=== PATIENT | male | born 1955 | race American Indian/Alaskan Native ===

== ENCOUNTER 2016-11-21 19:23 | Inpatient (IN) | payer MEDICARE ==
[2016-11-21] MEDS ORDERED: TYLENOL PO PRN (19:48)
[2016-11-21] MEDS ORDERED: SENOKOT PO PRN (19:48)
[2016-11-21] MEDS ORDERED: D50W (25GM) IV PRN (19:48)
[2016-11-21] MEDS ORDERED: DULCOLAX PR PRN (19:48)
[2016-11-21] MEDS ORDERED: NORCO 5/325 PO PRN (19:52)
[2016-11-21] MEDS: ZOCOR PO SCH (21:34)
[2016-11-21] MEDS: NOVOLOG SUB-Q SCH (21:34)
[2016-11-21] MEDS: XALATAN 0.005% OU SCH (22:28)
[2016-11-22 04:41] LABS: Basophils % (Auto) 0.4 % (0.0-1.8); Eosinophils % (Auto) 1.1 % (0.0-4.3); Hematocrit 32.8 % (35.5-45.6); Hemoglobin 11.1 gm/dl (11.8-15.2); Mean Corpuscular HGB Conc 34 % (32-34); Mean Corpuscular Hemoglobin 31 pg (28-32); Mean Corpuscular Volume 91 fl (84-94); Platelet Count 185 K/mm3 (140-440); Red Blood Count 3.61 M/mm3 (3.65-5.03); White Blood Count 4.8 K/mm3 (4.5-11.0)
[2016-11-22 04:58] LABS: Alanine Aminotransferase 13 units/L (7-56); Albumin 2.8 g/dL (3.9-5); Albumin/Globulin Ratio 0.7 %; Alkaline Phosphatase 93 units/L (35-129); BUN/Creatinine Ratio 11.81; Bilirubin,Total 0.4 mg/dL (0.1-1.2); Blood Urea Nitrogen 13 mg/dL (9-20); Calcium 8.6 mg/dL (8.4-10.2); Carbon Dioxide 26 mmol/L (22-30); Chloride 102.6 mmol/L (98-107); Glucose 176 mg/dL (75-100); Potassium 3.6 mmol/L (3.6-5.0); Sodium 140 mmol/L (137-145); Total Protein 6.9 g/dL (6.3-8.2)
[2016-11-22 05:16] LABS: Anion Gap 15 mmol/L
[2016-11-22] MEDS: HALFPRIN EC PO SCH (08:53)
[2016-11-22] MEDS: LOVENOX SUB-Q SCH (08:53)
[2016-11-22] MEDS: PLAVIX PO SCH (09:04)
[2016-11-22] MEDS: NOVOLOG SUB-Q SCH ×4 (09:05→22:09)
--- NOTE | 2016-11-22 14:46 | History and Physical Report ---
History of Present Illness Date: 11/22/16 Referring Facility: [facility] Date of admission: 11/21/16 19:23 Chief Complaint: CVA History of present illness: POST ADMISSION PHYSICIAN EVALUATION ONSET DATE: 11/16/2016 IMPAIRMENT GROUP CODE: 01.2 ETIOLOGIC DIAGNOSIS: left MCA CVA STATUS CHANGES SINCE PREADMISSION SCREENING: PAS has been reviewed. In comparison, pt is with increased strength at Right lower extremity; remains flaccid at RUE. Pt is able to participate in therapies on today without difficulty. Pt continues with functional deficits secondary to acute CVA; pt remains an appropriate candidate for IPR course. PREVIOUS FUNCTIONAL STATUS: Independent with ADLs, transfers; ambulated with RW , Kathrine due to right foot ulcer CURRENT FUNCTIONAL STATUS: modA for transfers; s/u to maxA for ADLs HPI 61 y.o. right handed male admitted secondary to acute onset of dysarthria and right sided weakness after awakening from a nap at home. Patient was brought into ED for evalaution to r/o CVA; found to have acute ischemic changes noted at the left basal ganglia; left MCA CVA distribution. Acute care course also notable for wound care nurse F/U as pt has been followed in outpt wound care for chronic diabetic right foot ulcer. Pt continued with right sided weakness, arm>leg and dysarthria; also with dysphagia on pureed diet with thin liquids. Due to ongoing functional deficits following acute CVA, pt is now admitted to IRU for aggressive therapies and ongoing medical management. Past History Past Medical History: diabetes (with peripheral neuropathy and chronic right foot infection; followed in outpt wound care clinic over last year), hepatitis, hypertension, hyperlipidemia, stroke (2014 without any residual effects) Past Surgical History: Other (cataracts; right toe amputations) Social history: , lives with family. denies: smoking, alcohol abuse Family history: diabetes, hypertension, stroke Medications and Allergies Allergies Allergy/AdvReac Type Severity Reaction Status Date / Time No Known Allergies Allergy Verified 04/03/16 10:35 Home Medications Medication Instructions Recorded Confirmed Last Taken Type Simvastatin [Zocor TAB] 40 mg PO QHS #30 tablet 01/30/16 11/22/16 11/21/16 21: 45 Rx 40mg Ledipasvir/Sofosbuvir [Harvoni 1 each PO QDAY 04/10/16 11/22/16 11/15/16 History 90-400 mg Tablet] HYDROcodone/APAP 5-325 [[place] 1 each PO Q6H PRN #20 tablet 04/17/16 11/22/16 Rx 5-325 mg TAB] Latanoprost 0.005% [Xalatan 0.005%] 1 drop OU QPM 11/16/16 11/22/16 11/21/16 23: 00 History 1 drop Aspirin EC [Aspirin Enteric Coated 81 mg PO QDAY #30 tablet. 11/21/16 Unknown Rx TAB] Clopidogrel [Plavix] 75 mg PO DAILY tablet 11/21/16 11/22/16 Unknown Rx Insulin Detemir [Levemir] 5 units SUB-Q QHS units 11/21/16 11/22/16 Unknown Rx Active Meds: Active Medications Acetaminophen (Tylenol) 650 mg PO Q4H PRN PRN Reason: Pain MILD(1-3)/Fever >100.5/[place] Acetaminophen/Hydrocodone Bitart (Lev[place] 5/325) 1 each PO Q6H PRN PRN Reason: Pain, Moderate (4-6) Aspirin (Halfprin Ec) 81 mg PO QDAY [facility] Last Admin: 11/22/16 08:53 Dose: 81 mg Bisacodyl (Dulcolax) 10 mg [place] QDAY PRN PRN Reason: Constipation unrelieved by MOM Clopidogrel Bisulfate (Plavix) 75 mg PO DAILY [facility] Last Admin: 11/22/16 09:04 Dose: 75 mg Dextrose (D50w (25gm)) 50 ml IV PRN PRN PRN Reason: Hypoglycemia Enoxaparin Sodium (Lovenox) 40 mg SUB-Q QDAY [facility] Last Admin: 11/22/16 08:53 Dose: 40 mg Insulin Aspart (Novolog) 0 units SUB-Q ACHS [facility] PRN Reason: Protocol Last Admin: 11/22/16 12:19 Dose: 2 units Latanoprost (Xalatan 0.005%) 1 drops OU QHS [facility] Last Admin: 11/21/16 22:28 Dose: 1 drops Senna (Senokot) 8.6 mg PO Q12H PRN PRN Reason: Laxative Effect Simvastatin (Zocor) 40 mg PO QHS [facility] Last Admin: 11/21/16 21:34 Dose: 40 mg Review of Systems All systems: negative Ears, nose, mouth and throat: no headache Cardiovascular: no chest pain, no lightheadedness Respiratory: no cough Gastrointestinal: indigestion, no nausea, no vomiting Genitourinary Male: no dysuria Neurological: weakness (right extremities) Exam - Constitutional Vitals: Vital Signs - 12hr 11/22/16 07:30 Temperature 98.5 F Pulse Rate [ 72 Left Brachial] Respiratory 20 Rate Blood Pressure 154/81 [Left Arm] O2 Sat by Pulse 100 Oximetry General appearance: no acute distress, other ( present) - EENT Eyes: EOM intact ENT: hearing intact - Neck Neck: supple, normal ROM - Respiratory Respiratory effort: normal Respiratory: bilateral: CTA - Cardiovascular Rhythm: regular Heart Sounds: Present: S1 & S2 - Extremities Extremity abnormal: edema (right foot) - Gastrointestinal General gastrointestinal: Present: soft, non-tender, non-distended, normal bowel sounds - Musculoskeletal Musculoskeletal: right sided weakness (right UE- flaccid; RLE- 3/5, except 2/5 ankle DF/PF) - Neurologic Neurologic: other (facial droop; +dysarthria; sensation grossly intact; cannot assess right foot due to dressing) - Psychiatric Psychiatric: appropriate mood/affect, memory intact, cooperative - Allied health notes FIMS assesment as documented by PT/OT/ST: Social interaction/Memory/Problem solving Social Interaction FIM Score 7. Complete [place] Memory FIM Score 6. Modified [place] Problem Solving FIM Score 6. Modified [place] Eating Eating FIM Score 5. Supervision - Labs CBC & Chem 7: 11/22/16 04:14 11/22/16 04:14 Labs: Laboratory Results - last 72 hr 11/22/16 11/22/16 11/22/16 04:14 04:14 06:38 WBC 4.8 RBC 3.61 L Hgb 11.1 L Hct 32.8 L MCV 91 MCH 31 MCHC 34 RDW 13.0 L Plt Count 185 Lymph % (Auto) 37.8 H [place] % (Auto) 8.3 H Eos % (Auto) 1.1 Baso % (Auto) 0.4 Lymph # 1.8 [place] # 0.4 Eos # 0.1 Baso # 0.0 Seg Neutrophils % 52.4 Seg Neutrophils # 2.5 Sodium 140 Potassium 3.6 Chloride 102.6 Carbon Dioxide 26 D Anion Gap 15 BUN 13 Creatinine 1.1 Estimated GFR > 60 BUN/Creatinine Ratio 11.81 Glucose 176 H POC Glucose 157 H Calcium 8.6 Total Bilirubin 0.4 AST 15 ALT 13 Alkaline Phosphatase 93 Total Protein 6.9 Albumin 2.8 L Albumin/Globulin Ratio 0.7 11/22/16 11:52 WBC RBC Hgb Hct MCV MCH MCHC RDW Plt Count Lymph % (Auto) [place] % (Auto) Eos % (Auto) Baso % (Auto) Lymph # [place] # Eos # Baso # Seg Neutrophils % Seg Neutrophils # Sodium Potassium Chloride Carbon Dioxide Anion Gap BUN Creatinine Estimated GFR BUN/Creatinine Ratio Glucose POC Glucose 203 H Calcium Total Bilirubin AST ALT Alkaline Phosphatase Total Protein Albumin Albumin/Globulin Ratio Assessment and Plan Assessment and plan: 61 y.o. right handed male s/p left MCA CVA with ongoing right hemiparesis, dysarthria, and dysphagia. The patient is medically stable, however, requires ongoing medical management for DM, HTN, wound care to right foot for chronic diabetic foot ulcer. Pt is appropriate for inpatient rehabilitation admission and is thought to be able to tolerate at least 3 hours of therapy a day, 5 days a week including 1 hour of physical therapy, 1 hour of occupational therapy, and 1 hour of speech therapy. Patient is able to understand and follow basic directions and has attainable rehab goals. Potential barriers/complications include extension/recurrent CVA, falls, DVT, PE, infection/sepsis, hypotension, hypoglycemia, syncope, seizures, depression, skin breakdown. Plan 1. Rehabilitation- Pt will undergo multidisciplinary/integrative rehab PT/OT/ BEVERAGE MANAGER, Nursing. Areas to be addressed include, but are not limited to PT for mobility, strengthening, transfer training, ROM, endurance, stairs, balance; OT for ADLs, household tasks, adaptive equipment; BEVERAGE MANAGER for dysphagia and dysarthria ; Nursing for carryover of therapies, CVA education, skin integrity, medication management, bowel/bladder management; Nutrition as needed; administrative services manager for discharge planning and equipment needs. Potential interventions include appropriate assistive device or adaptive equipment. Expected overall level of functional improvement by discharge is Kathrine to CGA for ADLs; supervision to CGA for transfers and gait. Pt will tentatively be discharged home with outpatient PT/OT/BEVERAGE MANAGER. Estimated length of stay is 2-3 weeks. 2. s/p CVA- continue ASA, Plavix, statin; PT/OT/BEVERAGE MANAGER to address functional deficits with gait, self cares, balance, dysarthria and dysphagia; advance diet when appropriate 3. HTN- BP elevated on today; will start Norvasc in AM 4. DM- will resume levemir; follow, avoid hypoglycemia with increased activity 5. right diabetic foot ulcer- wound care following; remains afebrile; to continue with Mesalt at wound beds (right lateral and planter surfaces) 6. DVT px- lovenox - Patient Problems (1) Acute ischemic left middle cerebral artery (MCA) stroke Current Visit: Yes Status: Acute (2) Dysarthria as late effect of cerebrovascular accident (CVA) Current Visit: No Status: Acute (3) Dysphagia as late effect of cerebrovascular accident (CVA) Current Visit: No Status: Acute (4) Hemiparesis affecting right side as late effect of cerebrovascular accident Current Visit: No Status: Acute (5) HTN (hypertension) Current Visit: Yes Status: Chronic Qualifiers: Hypertension type: essential hypertension Qualified Code(s): I10 - Essential (primary) hypertension (6) Type 2 diabetes mellitus Current Visit: Yes Status: Chronic Qualifiers: Diabetes mellitus complication status: with neurologic complications Diabetes mellitus complication detail: with polyneuropathy Diabetes mellitus senior living insulin use: with senior living use Qualified Code(s): E11.42 - Type 2 diabetes mellitus with diabetic polyneuropathy; Z79.4 - longterm (current) use of insulin (7) Diabetic foot ulcer Current Visit: Yes Status: Chronic Qualifiers: Diabetes mellitus type: type 2 Laterality: right Qualified Code(s): E11.621 - Type 2 diabetes mellitus with foot ulcer
[2016-11-22] MEDS ORDERED: ALUM-MAG HYDROX-SIMETH 200-200-20MG/5ML PO PRN (15:56)
[2016-11-22] MEDS: XALATAN 0.005% OU SCH (22:00)
[2016-11-22] MEDS: ZOCOR PO SCH (22:06)
[2016-11-22] MEDS: LEVEMIR SUB-Q SCH (22:10)
[2016-11-23] MEDS: NOVOLOG SUB-Q SCH ×4 (07:30→22:28)
[2016-11-23] MEDS: PLAVIX PO SCH (09:12)
[2016-11-23] MEDS: HALFPRIN EC PO SCH (09:12)
[2016-11-23] MEDS: ZESTRIL PO SCH (09:12)
[2016-11-23] MEDS: LOVENOX SUB-Q SCH (09:13)
--- NOTE | 2016-11-23 11:24 | Progress Note ---
Assessment and Plan 61 y.o. right handed male s/p left MCA CVA with ongoing right hemiparesis, dysarthria, and dysphagia - s/p CVA- ongoing right hemiparesis, arm>leg; continue ASA, Plavix, statin - gait dysfunction secondary to CVA- aggressive PT; pt ambulating with HW - dysarthria/dysphagia- continue FREIGHT SORTER; advance diet when appropriate, currently on pureed with thin liquids - HTN- lisinopril, home med, restarted on yesterday - DM- levemir restarted on last night; follow, avoid hypoglycemia with increased activity - right diabetic foot ulcer- continue wound care, Mesalt at wound beds (right lateral and planter surfaces) - DVT px- lovenox - fall education provided to patient; no injury noted; will follow closely for any change in status - Patient Problems (1) Acute ischemic left middle cerebral artery (MCA) stroke Current Visit: Yes Status: Acute (2) Dysarthria as late effect of cerebrovascular accident (CVA) Current Visit: No Status: Acute (3) Dysphagia as late effect of cerebrovascular accident (CVA) Current Visit: No Status: Acute (4) Hemiparesis affecting right side as late effect of cerebrovascular accident Current Visit: No Status: Acute (5) HTN (hypertension) Current Visit: Yes Status: Chronic Qualifiers: Hypertension type: essential hypertension Qualified Code(s): I10 - Essential (primary) hypertension (6) Type 2 diabetes mellitus Current Visit: Yes Status: Chronic Qualifiers: Diabetes mellitus complication status: with neurologic complications Diabetes mellitus complication detail: with polyneuropathy Diabetes mellitus senior care insulin use: with dedicated intermodal truck driver use Qualified Code(s): E11.42 - Type 2 diabetes mellitus with diabetic polyneuropathy; Z79.4 - watermelon inspector (current) use of insulin (7) Diabetic foot ulcer Current Visit: Yes Status: Chronic Qualifiers: Diabetes mellitus type: type 2 Laterality: right Qualified Code(s): E11.621 - Type 2 diabetes mellitus with foot ulcer (8) Abnormality of gait following cerebrovascular accident (CVA) Current Visit: No Status: Acute Subjective Date of service: 11/23/16 Principal diagnosis: left MCA CVA Interval history: Pt seen in room on this AM, F/U IPR course, left MCA CVA. Pt found on floor in room; reports attempting to reach across and get his cell phone from the bed and lost his balance out of the wheelchair. Pt denies any pain or injury; did not hit his head. Objective - Constitutional Vitals: Vital Signs - 12hr 11/23/16 11/23/16 08:11 09:12 Temperature 98.3 F Pulse Rate 82 Pulse Rate [ 82 Left Brachial] Respiratory 20 Rate Blood Pressure 164/76 Blood Pressure 164/76 [Left Arm] O2 Sat by Pulse 98 Oximetry General appearance: Present: no acute distress - EENT Eyes: EOM intact ENT: hearing intact - Neck Neck: supple, normal ROM - Respiratory Respiratory effort: normal Respiratory: bilateral: CTA - Cardiovascular Rhythm: regular Heart Sounds: Present: S1 & S2 Extremity abnormal: other (dressing to right foot) - Gastrointestinal General gastrointestinal: Present: soft, non-tender, non-distended, normal bowel sounds - Musculoskeletal Musculoskeletal: right sided weakness, other (no tenderness at noted across any joints with deep palpation following fall; no change in ROM on left extremities ; no pain with PROM on right) - Neurologic Neurologic: other (ongoing facial droop and dysarthria) - Psychiatric Psychiatric: appropriate mood/affect, cooperative - Allied health notes Allied health notes reviewed: PT (min/CGA for transfers; CGA-modA for gait 30 feet with HW), OT (S/U to maxA for ADLs) - Labs CBC & Chem 7: 11/22/16 04:14 11/22/16 04:14 Labs: Abnormal lab results 11/22/16 11/22/16 11/22/16 Range/Units 11:52 16:17 21:34 POC Glucose 203 H 244 H 153 H (70-105) 11/23/16 Range/Units 05:48 POC Glucose 143 H (70-105)
--- NOTE | 2016-11-23 12:50 | IRU Plan of Care ---
Interdisciplinary Plan of Care - IP IRU INTERDISCIPLINARY PLAN: [facility] Inpatient Rehab Unit Plan of Care IRU Interdisciplinary Care Plan Start: 11/21/16 19: 55 Freq: Admission then PRN Status: Active Document 11/23/16 11:08 DB (Rec: 11/23/16 11:42 DB [id number]) Interdisciplinary Problem List Interdisciplinary Problem List Interdisciplinary Problem List Impaired Eating/Swallowing Query Text:Answers will Trigger Problems Impaired Bathing/Grooming and Outcomes on Worklist. Impaired Dressing Impaired Mobility Impaired Transfers Impaired Toileting Knowledge Deficits Impaired Skin/Tissue Integrity Impaired Home Management Impaired Safety Medications Education Diabetes Education IRU Interdisciplinary Care Plan Therapy Services Therapy Services Will Include: Physical Therapy Query Text:Patient will be seen for a Occupational Therapy minimum of 3 hours of daily therapy 5 Speech Therapy out of 7 days a week. Therapy intensity may be adjusted within a 7 consecutive day period to effectively serve the individual needs of the patient. Treatment Frequency/Intensity/Duration Treatment Frequency 5 days a week Treatment Intensity 1 hour per discipline daily Treatment Duration 14-21 days Problem Area: Eating/Swallowing Eating/Swallowing Outcomes Consume Least Restrictive Diet Improve Labial ROM/Strength Improve Lingual ROM/Strength Eating/Swallowing Interventions Dysphagia Training Compensatory Strategies Patient/Caregiver Education Problem Area: Bathing/Grooming Bathing/Grooming Outcomes Improve [place] w/ Grooming Improve [place] w/ Bathing Bathing/Grooming Interventions ADL Training Use of Assistive Devices Therapeutic Exercise Therapeutic Activity Neuromuscular Re-Education Balance Work Activity Tolerance Work Patient/Caregiver Education Problem Area: Dressing Dressing Outcomes Improve [place] w/ UB Dressing Improve [place] w/ LB Dressing Dressing Interventions ADL Training Use of Assistive Devices Neuromuscular Re-Education Therapeutic Exercise Balance Work Patient/Caregiver Education Problem Area: Mobility Mobility Outcomes Improve [place] w/ Bed Mobility Improve [place] w/ Ambulation Improve [place] w/ Stairs /Curb Improve [place] w/ Wheelchair Mobility Interventions Therapeutic Exercise Neuromuscular Re-Ed. Visual/Perceptual Training Activity Tolerance Work Use of Assistive Devices Patient/Caregiver Education Bed Mobility Work Gait Training W/C Mobility Work Problem Area: Transfers Transfers Outcomes Improve [place] w/ Bed Transfers Improve [place] w/ Toilet Transfers Improve [place] w/ Tub/ Shower Transfers Improve [place] w/ Car Transfers Transfers Interventions Transfer Training Therapeutic Exercise Neuromuscular Re-Education Visual/Perceptual Training Activity Tolerance Work Use of Assistive Devices Patient/Caregiver Education Problem Area: Bowel/Bladder Managment Bowel/Bladder Outcomes Bowel/Bladder Interventions Problem Area: Toileting Toileting Outcomes Improve [place] w/ Toileting Toileting Interventions ADL Training Balance Work Use of Assistive Devices Patient/Caregiver Education Problem Area: Nutrition Nutrition Outcomes Nutrition Interventions Problem Area: Comprehension Comprehension Outcomes Improve Comprehension Follow Commands Improve Communication Comprehension Interventions Patient/Caregiver Education Problem Area: Expression Expression Outcomes Improve Intelligibility Improve Vocal Quality Improve Verbalization Expression Interventions Expressive Language Writing Tasks Patient/Caregiver Education Problem Area: Problem Solving Problem Solving Outcomes Improve Problem Solving Problem Solving Interventions Cognitive Training Safety Education Patient/Caregiver Education Problem Area: Memory Memory Outcomes Use Memory Aids Memory Interventions Cognitive Training Review of Precautions Patient/Caregiver Education Problem Area: Pain Management Pain Management Outcomes Demonstrate/Verbalize Pain Strategies Pain Management Interventions Medication Management Positioning/Turning Patient/Caregiver Education Problem Area: Knowledge Deficits Knowledge Deficits Outcomes Demonstrate Ability to Manage Blood Glucose Demonstrate Understanding of Anticoagulation Verbalize Precautions Verbalize Understanding of S/S of Stroke Knowledge Deficits Interventions Disease/Injury/Sx. Intervention Education Medication Use Education Disease Management Education Health Maintainence Education Safety Education Problem Area: Skin/Tissue Integrity Skin/Tissue Integrity Outcomes Exhibit Healing of Wound/ Incision Demonstrate Understanding of Pressure Relief Skin/Tissue Integrity Interventions Skin/Wound Care Pressure Relief Instruction Dressing Change Education Positioning/Turning Problem Area: Social Interaction Social Interaction Outcomes Social Interaction Interventions Problem Area: Adjustment to Disability Adjustment to Disability Outcomes Adjustment to Disability Interventions Problem Area: Discharge Concerns Discharge Concerns Outcomes Discharge w/ Necessary Equipment Have Home Health/Outpatient Services Discharge Concerns Interventions Discharge Planning Family/Caregiver Conference Family/Caregiver Training Problem Area: Community Reintegration Community Reintegration Outcomes Demonstrate Understanding of Community Resources Community Reintegration Interventions Provide Community Resources Problem Area: Home Management Home Management Outcomes Improve [place] w/ Home Management Home Management Interventions Activity Tolerance Work Patient/Caregiver Education Problem Area: Safety Safety Outcomes Provide Safe Environment Perform Selfcare Safely Demonstrate Good Safety w/ Transfers/Mobility Safety Interventions Identify Fall Risk [place] Pt. to Environment Reduce Environmental Hazards Implement Mechanical Devices, i.e. Chair Alarm (Post Fall Update) Re-Educate Patient/Caregiver for Safety (Post Fall Update) Problem Area: Medication Education Medication Education Outcomes Patient/Caregiver will Verbalize Understanding of Medications Medication Education Interventions Explain Administration/Side Effects/Interactions Problem Area: Diabetes Education Diabetes Education Outcomes Demonstrate Knowledge of Resources Availlable in Diabetic Ed. Folder Diabetes Education Interventions Give Pt. Diabetes Education Folder Discuss Pathophysiology of Diabetes Review Instruction on Making Appointment for Outpatient Program Problem Area: Oxygenation Oxygenation Outcomes Oxygenation Interventions Problem Area: Cardiovascular Cardiovascular Outcomes Cardiovascular Interventions Physician Only Medical Prognosis and Rehabilitation Patient demonstrates good Potential (Completed by Physician) rehab potential. Medical Prognosis: Good This plan of care has been developed based on the findings from the pre- admission assessment, post admission physician evaluation, information gathered from the assessments from all therapy disciplines and other pertinent clinicians. The plan of care has been reviewed and discussed in collaboration with the interdisciplinary team. The plan of care will be reviewed and updated at least weekly. 61 y.o. right handed male s/p left MCA CVA with ongoing right hemiparesis, dysarthria, and dysphagia. The patient remains at risk for extension/recurrent CVA, falls, DVT, PE, infection/sepsis, hypotension, hypoglycemia, syncope, seizures, depression, skin breakdown. Pt with fall this AM without any injury; safety education provided to patient. Home meds restarted for HTN and DM; will continue to monitor. Pt remains on pureed diet with thin liquids; will advance when appropriate during course. Wound care to continue to follow for chronic right diabetic foot ulcer. Pt continues with functional deficits and is tolerating therapies well. Pt remains an appropriate candidate for IPR course.
[2016-11-23] MEDS: ZOCOR PO SCH (22:00)
[2016-11-23] MEDS: LEVEMIR SUB-Q SCH (22:00)
[2016-11-23] MEDS: XALATAN 0.005% OU SCH (22:20)
[2016-11-24] MEDS: NOVOLOG SUB-Q SCH ×4 (07:30→22:50)
[2016-11-24] MEDS: LOVENOX SUB-Q SCH (09:45)
[2016-11-24] MEDS: ZESTRIL PO SCH (09:46)
[2016-11-24] MEDS: PLAVIX PO SCH (09:47)
[2016-11-24] MEDS: HALFPRIN EC PO SCH (09:47)
--- NOTE | 2016-11-24 12:49 | Progress Note ---
Assessment and Plan 61 y.o. right handed male s/p left MCA CVA with ongoing right hemiparesis, dysarthria, and dysphagia - s/p CVA- ongoing right hemiparesis, arm>leg; continue ASA, Plavix, statin - gait dysfunction secondary to CVA- Ari/moda for transfers and gait; pt is tolerating well - dysarthria/dysphagia- continue BED LASTER; diet advanced to mechanical soft on today - HTN- stable; continue to follow - DM- good control; continue to follow - right diabetic foot ulcer- ongoing wound care - DVT px- lovenox - Patient Problems (1) Acute ischemic left middle cerebral artery (MCA) stroke Current Visit: Yes Status: Acute (2) Dysarthria as late effect of cerebrovascular accident (CVA) Current Visit: No Status: Acute (3) Dysphagia as late effect of cerebrovascular accident (CVA) Current Visit: No Status: Acute (4) Hemiparesis affecting right side as late effect of cerebrovascular accident Current Visit: No Status: Acute (5) HTN (hypertension) Current Visit: Yes Status: Chronic Qualifiers: Hypertension type: essential hypertension Qualified Code(s): I10 - Essential (primary) hypertension (6) Type 2 diabetes mellitus Current Visit: Yes Status: Chronic Qualifiers: Diabetes mellitus complication status: with neurologic complications Diabetes mellitus complication detail: with polyneuropathy Diabetes mellitus senior living insulin use: with equipment driver use Qualified Code(s): E11.42 - Type 2 diabetes mellitus with diabetic polyneuropathy; Z79.4 - penitentiary (current) use of insulin (7) Diabetic foot ulcer Current Visit: Yes Status: Chronic Qualifiers: Diabetes mellitus type: type 2 Laterality: right Qualified Code(s): E11.621 - Type 2 diabetes mellitus with foot ulcer (8) Abnormality of gait following cerebrovascular accident (CVA) Current Visit: No Status: Acute Subjective Date of service: 11/24/16 Principal diagnosis: left MCA CVA Interval history: Pt seen in BED LASTER this AM, F/U IPR course, left MCA CVA. No pain s/p fall on yesterday; noted to have an episode of vomiting on yesterday evening; no further episodes; denies any nausea on today Objective - Constitutional Vitals: Vital Signs - 12hr 11/24/16 11/24/16 08:03 09:46 Temperature 98.3 F Pulse Rate 69 Pulse Rate [ 69 Left Brachial] Respiratory 18 Rate Blood Pressure 152/76 Blood Pressure 152/76 [Left Arm] O2 Sat by Pulse 100 Oximetry General appearance: Present: no acute distress, well-nourished - EENT Eyes: EOM intact ENT: hearing intact - Neck Neck: supple, normal ROM - Respiratory Respiratory effort: normal - Gastrointestinal General gastrointestinal: Present: soft, non-tender, non-distended - Musculoskeletal Musculoskeletal: right sided weakness - Neurologic Neurologic: other (unchanged facial droop an dysarthria) - Psychiatric Psychiatric: appropriate mood/affect, cooperative - Allied health notes Allied health notes reviewed: PT (Ari for transfers; modA for gait), ST ( upgraded to mechanical soft diet from pureed) - Labs CBC & Chem 7: 11/22/16 04:14 11/22/16 04:14 Labs: Abnormal lab results 11/23/16 11/23/16 11/24/16 Range/Units 16:39 21:23 06:14 POC Glucose 116 H 137 H 111 H (70-105) 11/24/16 Range/Units 11:56 POC Glucose 142 H (70-105)
[2016-11-24] MEDS: ZOFRAN PO PRN (14:10)
[2016-11-24] MEDS: ZOCOR PO SCH (22:34)
[2016-11-24] MEDS: LEVEMIR SUB-Q SCH (23:11)
[2016-11-24] MEDS: XALATAN 0.005% OU SCH (23:27)
[2016-11-25] MEDS: ZESTRIL PO SCH (08:00)
[2016-11-25] MEDS: HALFPRIN EC PO SCH (08:54)
[2016-11-25] MEDS: LOVENOX SUB-Q SCH (08:54)
[2016-11-25] MEDS: ZOFRAN PO PRN ×2 (08:55→17:08)
[2016-11-25] MEDS: PLAVIX PO SCH ×2 (08:58→10:00)
[2016-11-25] MEDS: NOVOLOG SUB-Q SCH ×3 (13:16→22:38)
[2016-11-25] MEDS: ZOCOR PO SCH (21:58)
[2016-11-25] MEDS: LEVEMIR SUB-Q SCH (22:41)
[2016-11-25] MEDS: XALATAN 0.005% OU SCH (23:07)
[2016-11-26] MEDS: PLAVIX PO SCH (09:49)
[2016-11-26] MEDS: LOVENOX SUB-Q SCH (09:49)
[2016-11-26] MEDS: HALFPRIN EC PO SCH (09:49)
[2016-11-26] MEDS: ZESTRIL PO SCH (09:53)
--- NOTE | 2016-11-26 11:22 | Progress Note ---
Assessment and Plan 61 y.o. right handed male s/p left MCA CVA with ongoing right hemiparesis, dysarthria, and dysphagia c/o Vomiting with food. 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 has had vomiting even prior to advancing diet. any GI issue?, will request GI consult. d/w speech. will consider going back to Puree diet. - HTN- stable; continue to follow - DM- good control; continue to follow - right diabetic foot ulcer- ongoing wound care - Urinary incontinence - will do bladder scan. do UA today. - DVT px- lovenox - Patient Problems (1) Acute ischemic left middle cerebral artery (MCA) stroke Current Visit: Yes Status: Acute (2) Diabetic foot ulcer Current Visit: Yes Status: Chronic Qualifiers: Diabetes mellitus type: type 2 Laterality: right Qualified Code(s): E11.621 - Type 2 diabetes mellitus with foot ulcer (3) HTN (hypertension) Current Visit: Yes Status: Chronic Qualifiers: Hypertension type: essential hypertension Qualified Code(s): I10 - Essential (primary) hypertension (4) Type 2 diabetes mellitus Current Visit: Yes Status: Chronic Qualifiers: Diabetes mellitus complication status: with neurologic complications Diabetes mellitus complication detail: with polyneuropathy Diabetes mellitus long-term insulin use: with long-term use Qualified Code(s): E11.42 - Type 2 diabetes mellitus with diabetic polyneuropathy; Z79.4 - medical terminologist (current) use of insulin (5) ARF (acute renal failure) Current Visit: No Status: Acute (6) Abnormality of gait following cerebrovascular accident (CVA) Current Visit: No Status: Acute (7) CVA (cerebral vascular accident) Current Visit: No Status: Acute Qualifiers: CVA mechanism: unspecified Qualified Code(s): I63.9 - Cerebral infarction, unspecified Subjective Date of service: 11/26/16 Principal diagnosis: left MCA CVA Interval history: patient seen and examined during PT session. c/o N/V with mechanical soft diet. On Thin liquid. has right sided weakness. c/o bladder incontinence. PT/OT/ Speech notes reviewed. d/w Speech therapist about Vomiting with food. will consider going back to Puree diet. Objective - Constitutional Vitals: Vital Signs - 12hr 11/26/16 11/26/16 03:40 09:53 Temperature 98.3 F Pulse Rate 94 H Pulse Rate [ 74 From Monitor] Respiratory 20 Rate Blood Pressure 113/59 Blood Pressure 116/54 [Left Arm] O2 Sat by Pulse 96 Oximetry - EENT Eyes: PERRL ENT: hearing intact - Neck Neck: supple - Respiratory Respiratory effort: normal Respiratory: bilateral: CTA - Cardiovascular Rhythm: regular Heart Sounds: Present: S1 & S2 Extremities: no ischemia, pulses symmetrical, No edema - Gastrointestinal Rectal Exam: deferred - Genitourinary Male genitourinary: deferred - Integumentary Integumentary: clear, warm, dry - Musculoskeletal Musculoskeletal: right sided weakness - Neurologic Neurologic: other (right facial palsy, dysarthria) - Psychiatric Psychiatric: appropriate mood/affect, intact judgment & insight - Allied health notes Allied health notes reviewed: nursing, PT, ST, OT - Labs CBC & Chem 7: 11/22/16 04:14 11/22/16 04:14 Labs: Abnormal lab results 11/25/16 11/25/16 Range/Units 11:45 16:54 POC Glucose 176 H 178 H (70-105)
[2016-11-26] MEDS: NOVOLOG SUB-Q SCH ×4 (12:53→22:27)
[2016-11-26] MEDS: ZOCOR PO SCH (22:00)
[2016-11-26] MEDS: XALATAN 0.005% OU SCH (22:00)
[2016-11-26] MEDS: LEVEMIR SUB-Q SCH (22:00)
[2016-11-27 04:55] LABS: Bacteria,Urine 2+ /HPF (Negative); Bilirubin,Urine NEG (Negative); Blood,Urine LG (Negative); Ketones,Urine NEG (Negative); Leukocyte Esterase,Urine LG (Negative); Mucus,Urine FEW /HPF; Nitrite,Urine POS (Negative)
[2016-11-27 04:56] LABS: RBC,Urine > 182.0 /HPF (0.0-6.0); WBC,Urine > 182.0 /HPF (0.0-6.0)
--- NOTE | 2016-11-27 09:46 | Progress Note ---
Assessment and Plan 61 y.o. right handed male s/p left MCA CVA with ongoing right hemiparesis, dysarthria, and dysphagia c/o Vomiting with food-better. s - s/p CVA- ongoing right hemiparesis, arm>leg; continue ASA, Plavix, statin - gait dysfunction secondary to CVA- Ari/moda for transfers and gait; pt is tolerating well - dysarthria/dysphagia- continue FULL TIME; OK with mechanical soft diet with thin liquid. still c/o N/V with food. reports that he has had N/V with food even prior to stroke. requested GI consult. - HTN- stable; continue to follow - DM- good control; continue to follow - right diabetic foot ulcer- ongoing wound care - Urinary incontinence -UA is positive. start Levaquin. check urine C/S. - DVT px- lovenox - Patient Problems (1) Acute ischemic left middle cerebral artery (MCA) stroke Current Visit: Yes Status: Acute (2) Diabetic foot ulcer Current Visit: Yes Status: Chronic Qualifiers: Diabetes mellitus type: type 2 Laterality: right Qualified Code(s): E11.621 - Type 2 diabetes mellitus with foot ulcer (3) HTN (hypertension) Current Visit: Yes Status: Chronic Qualifiers: Hypertension type: essential hypertension Qualified Code(s): I10 - Essential (primary) hypertension (4) Type 2 diabetes mellitus Current Visit: Yes Status: Chronic Qualifiers: Diabetes mellitus complication status: with neurologic complications Diabetes mellitus complication detail: with polyneuropathy Diabetes mellitus terminal operations supervisor insulin use: with terminal operations supervisor use Qualified Code(s): E11.42 - Type 2 diabetes mellitus with diabetic polyneuropathy; Z79.4 - terminal gauger (current) use of insulin (5) ARF (acute renal failure) Current Visit: No Status: Acute (6) Abnormality of gait following cerebrovascular accident (CVA) Current Visit: No Status: Acute (7) CVA (cerebral vascular accident) Current Visit: No Status: Acute Qualifiers: CVA mechanism: unspecified Qualified Code(s): I63.9 - Cerebral infarction, unspecified Subjective Date of service: 11/27/16 Principal diagnosis: left MCA CVA Interval history: patient seen and examined during PT session. feel better with food today. observed eating with Speech. no episode of choking/coughing with mechanical soft diet. GI consult requested. states that he had N/V with food even prior to stroke. Objective - Constitutional Vitals: Vital Signs - 12hr 11/26/16 22:00 Pulse Rate [ 84 Right Radial] Respiratory 16 Rate General appearance: Present: no acute distress - EENT Eyes: PERRL ENT: hearing intact - Neck Neck: supple - Respiratory Respiratory effort: normal Respiratory: bilateral: CTA - Cardiovascular Rhythm: regular Heart Sounds: Present: S1 & S2 Extremities: no ischemia, pulses intact - Gastrointestinal General gastrointestinal: Present: soft, non-tender, normal bowel sounds - Integumentary Integumentary: clear, warm, dry - Musculoskeletal Musculoskeletal: right sided weakness - Neurologic Neurologic: other (right facial palsy,dysarthria, dyaphagia) - Psychiatric Psychiatric: appropriate mood/affect - Allied health notes Allied health notes reviewed: nursing, PT, ST, OT - Labs CBC & Chem 7: 11/22/16 04:14 11/22/16 04:14 Labs: Abnormal lab results 11/26/16 11/26/16 11/26/16 Range/Units 04:30 12:10 17:44 POC Glucose 181 H 229 H (70-105) Urine WBC (Auto) > 182.0 H (0.0-6.0) /HPF 11/26/16 11/27/16 Range/Units 22:18 06:06 POC Glucose 226 H 171 H (70-105) Urine WBC (Auto) (0.0-6.0) /HPF
[2016-11-27] MEDS: NOVOLOG SUB-Q SCH ×4 (09:47→22:00)
[2016-11-27] MEDS: LOVENOX SUB-Q SCH (09:57)
[2016-11-27] MEDS: PLAVIX PO SCH (09:58)
[2016-11-27] MEDS: ZOFRAN PO PRN ×2 (09:58→14:37)
[2016-11-27] MEDS: HALFPRIN EC PO SCH (09:58)
[2016-11-27] MEDS: LEVAQUIN PO SCH (09:59)
[2016-11-27] MEDS: ZESTRIL PO SCH (09:59)
--- NOTE | 2016-11-27 17:47 | Gastroenterology Consultation ---
History of Present Illness - Reason for Consult Consult date: 11/27/16 Nausea/Vomiting Requesting physician: OSMANI VALDERRAMA - History of Present Illness The patient is seen in his rehab room, and the hx is obtained from him and his family present. There is apparently a long hx of mild N/V, but it may (they are not sure) have worsened since an acute MCA CVA for which he is in rehab. He primarily has nausea, and responds to zofran, but has intermittently had vomiting as well (nonbloody). He had a CCY earlier this year (mild cholecystitis with gallstones) but has not had recent EGD, nor had a gastric emptying scan. He is recovering well from the CVA, and his swallowing ability is improving (on a pureed diet). He has no dysphagia nor hematemesis. He has no chest pain or abdominal pain. There has been no associated weight loss. He does not use chronic antiacids at home. He denies a hx of PUD. Of note, his hgb has slowly declined while here (on ASA, plavix, and lovenox). In addition, he has a hx of HCV and was on Harvoni on admission by Dr Hawa Pearl's clinic. Past History Past Medical History: diabetes (with peripheral neuropathy and chronic right foot infection; followed in outpt wound care clinic over last year), hepatitis, hypertension, hyperlipidemia, stroke (2014 without any residual effects) Past Surgical History: Other (cataracts; right toe amputations) Social history: , lives with family. denies: smoking, alcohol abuse Family history: diabetes, hypertension, stroke Medications and Allergies Allergies Allergy/AdvReac Type Severity Reaction Status Date / Time No Known Allergies Allergy Verified 04/03/16 10:35 Home Medications Medication Instructions Recorded Confirmed Last Taken Type Simvastatin [Zocor TAB] 40 mg PO QHS #30 tablet 01/30/16 11/22/16 11/21/16 21: 45 Rx 40mg Ledipasvir/Sofosbuvir [Harvoni 1 each PO QDAY 04/10/16 11/22/16 11/15/16 History 90-400 mg Tablet] HYDROcodone/APAP 5-325 [[place] 1 each PO Q6H PRN #20 tablet 04/17/16 11/22/16 Rx 5-325 mg TAB] Latanoprost 0.005% [Xalatan 0.005%] 1 drop OU QPM 11/16/16 11/22/16 11/21/16 23: 00 History 1 drop Aspirin EC [Aspirin Enteric Coated 81 mg PO QDAY #30 tablet. 11/21/16 Unknown Rx TAB] Clopidogrel [Plavix] 75 mg PO DAILY tablet 11/21/16 11/22/16 Unknown Rx Insulin Detemir [Levemir] 5 units SUB-Q QHS units 11/21/16 11/22/16 Unknown Rx Active Meds: Active Medications Acetaminophen (Tylenol) 650 mg PO Q4H PRN PRN Reason: Pain MILD(1-3)/Fever >100.5/[place] Acetaminophen/Hydrocodone Bitart ([place] 5/325) 1 each PO Q6H PRN PRN Reason: Pain, Moderate (4-6) Al Hydrox/Mg Hydrox/Simethicone (Alum-Mag Hydrox-Simeth [phone]/5ml) 15 ml PO Q4H PRN PRN Reason: Indigestion Aspirin (Halfprin Ec) 81 mg PO QDAY [facility] Bisacodyl (Dulcolax) 10 mg [place] QDAY PRN PRN Reason: Constipation unrelieved by MOM Clopidogrel Bisulfate (Plavix) 75 mg PO DAILY [facility] Dextrose (D50w (25gm)) 50 ml IV PRN PRN PRN Reason: Hypoglycemia Enoxaparin Sodium (Lovenox) 40 mg SUB-Q QDAY [facility] Last Admin: 11/27/16 09:57 Dose: 40 mg Insulin Aspart (Novolog) 0 units SUB-Q [facility] PRN Reason: Protocol Last Admin: 11/27/16 14:36 Dose: Not Given Insulin Detemir (Levemir) 5 units SUB-Q QHS [facility] Last Admin: 11/26/16 22:00 Dose: 5 units Latanoprost (Xalatan 0.005%) 1 drops OU QHS [facility] Last Admin: 11/26/16 22:00 Dose: 1 drops Levofloxacin (Levaquin) 500 mg PO Q24HR [facility] Stop: 12/03/16 23:59 Last Admin: 11/27/16 09:59 Dose: 500 mg Lisinopril (Zestril) 20 mg PO QDAY [facility] Last Admin: 11/27/16 09:59 Dose: Not Given Ondansetron HCl (Zofran) 4 mg PO Q6H PRN PRN Reason: Nausea And Vomiting Last Admin: 11/27/16 14:37 Dose: 4 mg Senna (Senokot) 8.6 mg PO Q12H PRN PRN Reason: Laxative Effect Simvastatin (Zocor) 40 mg PO QHS [facility] Last Admin: 11/26/16 22:00 Dose: 40 mg Review of Systems - Review of Systems All systems: negative (as noted in the HPI) Exam - Constitutional Vital Signs: Temp Pulse Resp BP Pulse Ox 98.3 F 85 20 120/55 98 11/27/16 08:30 11/27/16 10:00 11/27/16 08:30 11/27/16 09:59 11/27/16 10:00 General appearance: no acute distress - EENT Eyes: PERRL, EOM intact ENT: hearing intact, clear oral mucosa, no thrush - Neck Neck: supple, normal ROM - Respiratory Respiratory effort: normal Respiratory: bilateral: CTA - Cardiovascular Rhythm: regular Heart Sounds: Present: S1 & S2 Extremities: no ischemia - Gastrointestinal General gastrointestinal: Present: soft, non-tender - Integumentary Integumentary: Present: clear, warm, dry - Neurologic Neurological: alert and oriented x3, other (Mild dysarthria and hemiparesis) - Labs CBC & Chem 7: 11/22/16 04:14 11/22/16 04:14 Lab Results: Laboratory Results - last 24 hr 11/26/16 11/26/16 11/26/16 04:30 17:44 22:18 POC Glucose 229 H 226 H Urine Color Yadi Urine Turbidity Turbid Urine pH 6.0 Ur Specific [place] 1.018 Urine Protein 100 mg/dl Urine Glucose (UA) 50 Urine Ketones Neg Urine Blood Lg Urine Nitrite Pos Urine Bilirubin Neg Urine Urobilinogen 4.0 Ur Leukocyte Esterase Lg Urine WBC (Auto) > 182.0 H Urine RBC (Auto) > 182.0 Urine Bacteria (Auto) 2+ Hyaline Casts 9 Urine Mucus Few 11/27/16 11/27/16 11/27/16 06:06 12:27 16:13 POC Glucose 171 H 164 H 193 H Urine Color Urine Turbidity Urine pH Ur Specific [place] Urine Protein Urine Glucose (UA) Urine Ketones Urine Blood Urine Nitrite Urine Bilirubin Urine Urobilinogen Ur Leukocyte Esterase Urine WBC (Auto) Urine RBC (Auto) Urine Bacteria (Auto) Hyaline Casts Urine Mucus Assessment and Plan - Patient Problems (1) Nausea & vomiting Current Visit: Yes Status: Acute Plan to address problem: - Months (?years) duration but no signs of malnutrition and variable in intensity. - Prior CCY in 2016, and normal LFTs (doubt recurrent HCV). - No prior upper/lower endoscopy, so will start with EGD, but since it does not occur with every meal, I doubt outlet obstruction. - Given long hx of DM, gastroparesis is possible (will order emptying scan after EGD if that is negative). (2) Hepatitis C infection Current Visit: Yes Status: Acute Plan to address problem: - Interrupted treatment with Harvoni due to recent MCA CVA, but LFTs remain normal. - Will check viral load, and if negative, no need to resume medication. (3) Anemia Current Visit: Yes Status: Acute Plan to address problem: - Patient will require long-term ASA and plavix; if EGD negative, will probably need colonoscopy given fall in hgb (10 points) despite lack of GI bleeding.
[2016-11-27] MEDS: ZOCOR PO SCH (22:00)
[2016-11-27] MEDS: LEVEMIR SUB-Q SCH (22:00)
[2016-11-27] MEDS: XALATAN 0.005% OU SCH (23:26)
[2016-11-28] MEDS: ZESTRIL PO SCH (09:03)
[2016-11-28] MEDS: LEVAQUIN PO SCH (09:03)
[2016-11-28] MEDS: NOVOLOG SUB-Q SCH ×4 (09:05→23:00)
[2016-11-28] MEDS: LOVENOX SUB-Q SCH (09:06)
--- NOTE | 2016-11-28 10:30 | Post Operative Note ---
Pre-op diagnosis: nausea/vomitting Post-op diagnosis: same (normal EGD) Findings: normal EGD Procedure: EGD Anesthesia: MAC Surgeon: OVIDIO MABRY Estimated blood loss: none Pathology: none Condition: stable
--- NOTE | 2016-11-28 11:38 | Progress Note ---
Assessment and Plan 61 y.o. right handed male s/p left MCA CVA with ongoing right hemiparesis, dysarthria, and dysphagia c/o Vomiting with food. GI consult appreciated. Endoscopy done today. - s/p CVA- ongoing right hemiparesis, arm>leg; continue ASA, Plavix, statin - gait dysfunction secondary to CVA- still requires Ari/moda for transfers and gait. 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 still c/o N/V - intermittent - HTN- stable; continue to follow - DM- good control; continue to follow - right diabetic foot ulcer- ongoing wound care - Urinary incontinence -UA is positive. start Levaquin. - DVT px- lovenox -GI - GI consult appreciated. Endoscopy done today, result pending. r/o gastroparesis due to DM? f/u with GI - Patient Problems (1) Acute ischemic left middle cerebral artery (MCA) stroke Current Visit: Yes Status: Acute (2) Diabetic foot ulcer Current Visit: Yes Status: Chronic Qualifiers: Diabetes mellitus type: type 2 Laterality: right Qualified Code(s): E11.621 - Type 2 diabetes mellitus with foot ulcer; L97.519 - Non-pressure chronic ulcer of other part of right foot with unspecified severity (3) HTN (hypertension) Current Visit: Yes Status: Chronic Qualifiers: Hypertension type: essential hypertension Qualified Code(s): I10 - Essential (primary) hypertension (4) Type 2 diabetes mellitus Current Visit: Yes Status: Chronic Qualifiers: Diabetes mellitus complication status: with neurologic complications Diabetes mellitus complication detail: with polyneuropathy Diabetes mellitus intermediate accountant insulin use: with intermediate accountant use Qualified Code(s): E11.42 - Type 2 diabetes mellitus with diabetic polyneuropathy; Z79.4 - intermediate designer (current) use of insulin (5) ARF (acute renal failure) Current Visit: No Status: Acute (6) Abnormality of gait following cerebrovascular accident (CVA) Current Visit: No Status: Acute (7) CVA (cerebral vascular accident) Current Visit: No Status: Acute Qualifiers: CVA mechanism: unspecified Qualified Code(s): I63.9 - Cerebral infarction, unspecified Subjective Date of service: 11/28/16 Principal diagnosis: left MCA CVA Interval history: patient seen and examined. Endoscopy done today. nursing reported mild discharge from right foot ulcer. no N/V/C/D. PT/OT //Speech reviewed. Objective - Constitutional Vitals: Vital Signs - 12hr 11/28/16 11/28/16 08:35 09:03 Temperature 97.4 F L Pulse Rate 84 Pulse Rate [ 84 Right Dorsalis Pedis] Respiratory 20 Rate Blood Pressure 156/70 Blood Pressure 156/70 [Left Arm] O2 Sat by Pulse 98 Oximetry General appearance: Present: no acute distress - EENT Eyes: PERRL ENT: hearing intact - Neck Neck: supple - Respiratory Respiratory effort: normal Respiratory: bilateral: CTA, negative: rales, rhonchi, wheezing - Breasts Breasts: deferred - Cardiovascular Rhythm: regular Heart Sounds: Present: S1 & S2 Extremities: no ischemia, abnormal (right foot diabetic ulcer- dry. no discharge.) - Gastrointestinal General gastrointestinal: Present: soft, non-tender, non-distended Rectal Exam: deferred - Integumentary Integumentary: clear, warm, dry - Musculoskeletal Musculoskeletal: right sided weakness - Neurologic Neurologic: other (dysarthria) - Labs CBC & Chem 7: 11/22/16 04:14 11/22/16 04:14 Labs: Abnormal lab results 11/27/16 11/27/16 11/27/16 Range/Units 12:27 16:13 22:00 POC Glucose 164 H 193 H 150 H (70-105) 11/28/16 11/28/16 Range/Units 06:45 10:33 POC Glucose 145 H 121 H (70-105)
[2016-11-28] MEDS: ZOFRAN PO PRN (16:06)
[2016-11-28] MEDS: XALATAN 0.005% OU SCH (21:30)
[2016-11-28] MEDS: ZOCOR PO SCH (21:30)
[2016-11-28] MEDS: LEVEMIR SUB-Q SCH (23:00)
[2016-11-29] MEDS: ZESTRIL PO SCH (09:13)
[2016-11-29] MEDS: PLAVIX PO SCH ×2 (09:14→10:00)
[2016-11-29] MEDS: LEVAQUIN PO SCH (09:14)
[2016-11-29] MEDS: LOVENOX SUB-Q SCH (09:15)
[2016-11-29] MEDS: NOVOLOG SUB-Q SCH ×3 (09:15→18:40)
[2016-11-29] MEDS: HALFPRIN EC PO SCH (09:15)
--- NOTE | 2016-11-29 10:10 | Progress Note ---
Assessment and Plan 61 y.o. right handed male s/p left MCA CVA with ongoing right hemiparesis, dysarthria, and dysphagia Endoscopy - negative. still has N/V - s/p CVA- ongoing right hemiparesis, arm>leg; continue ASA, Plavix, statin - gait dysfunction secondary to CVA- still requires Ari/moda for transfers and gait. 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 trial of Vital stim. - HTN- stable; continue to follow - DM- good control; continue to follow BS 121/90 - right diabetic foot ulcer- ongoing wound care. no drainage. - Urinary incontinence -on Levaquin. C/S - possible contamination. will finish a course of Levaquin. - DVT px- lovenox -r/o gastroparesis due to DM - Endoscopy -negative. increase dose of zofran to 8 mg po q8hrs. trial of full liquid diet. - Patient Problems (1) Acute ischemic left middle cerebral artery (MCA) stroke Current Visit: Yes Status: Acute (2) Diabetic foot ulcer Current Visit: Yes Status: Chronic Qualifiers: Diabetes mellitus type: type 2 Laterality: right Qualified Code(s): E11.621 - Type 2 diabetes mellitus with foot ulcer; L97.519 - Non-pressure chronic ulcer of other part of right foot with unspecified severity (3) HTN (hypertension) Current Visit: Yes Status: Chronic Qualifiers: Hypertension type: essential hypertension Qualified Code(s): I10 - Essential (primary) hypertension (4) Type 2 diabetes mellitus Current Visit: Yes Status: Chronic Qualifiers: Diabetes mellitus complication status: with neurologic complications Diabetes mellitus complication detail: with polyneuropathy Diabetes mellitus intermediate insulin use: with intermediate use Qualified Code(s): E11.42 - Type 2 diabetes mellitus with diabetic polyneuropathy; Z79.4 - [facility] (current) use of insulin (5) ARF (acute renal failure) Current Visit: No Status: Acute (6) Abnormality of gait following cerebrovascular accident (CVA) Current Visit: No Status: Acute (7) CVA (cerebral vascular accident) Current Visit: No Status: Acute Qualifiers: CVA mechanism: unspecified Qualified Code(s): I63.9 - Cerebral infarction, unspecified Subjective Date of service: 11/29/16 Principal diagnosis: left MCA CVA Interval history: patient seen and examined. Endoscopy is negative. still has N/V with food. downgraded to full liquid diet. observed speech session. doing well with Vital Stim Objective - Constitutional Vitals: Vital Signs - 12hr 11/29/16 11/29/16 08:00 09:13 Temperature 98.5 F Pulse Rate 72 Pulse Rate [ 72 Left Radial] Respiratory 22 Rate Blood Pressure 142/70 Blood Pressure 142/70 [Left Arm] O2 Sat by Pulse 98 Oximetry General appearance: Present: no acute distress - EENT Eyes: PERRL ENT: hearing intact - Neck Neck: supple - Respiratory Respiratory effort: normal - Cardiovascular Rhythm: regular Heart Sounds: Present: S1 & S2 Extremities: no ischemia, pulses intact - Gastrointestinal General gastrointestinal: Present: soft, non-tender, non-distended, normal bowel sounds - Integumentary Integumentary: clear, warm, dry - Musculoskeletal Musculoskeletal: right sided weakness - Neurologic Neurologic: other (right facial palsy. dysphagia, dysarthria) - Psychiatric Psychiatric: appropriate mood/affect - Allied health notes Allied health notes reviewed: nursing, PT, ST, OT - Labs CBC & Chem 7: 11/22/16 04:14 11/22/16 04:14 Labs: Abnormal lab results 11/28/16 11/28/16 Range/Units 10:33 16:13 POC Glucose 121 H 171 H (70-105)
[2016-11-29] MEDS: ZOFRAN PO PRN (11:06)
--- NOTE | 2016-11-29 18:21 | Gastroenterology Progress Note ---
Assessment and Plan - Patient Problems (1) Nausea & vomiting Current Visit: Yes Status: Acute Plan to address problem: - Chronic > 1 year, and did not respond to CCY for gallstones. - EGD (-) 11/28. - Will get CT A/P and check CMP/lipase. - Will also get a gastric emptying scan given chronic DM. (2) Hepatitis C infection Current Visit: Yes Status: Acute Plan to address problem: - On active Harvoni tx at admit. - Viral load currently pending. (3) Anemia Current Visit: Yes Status: Acute Plan to address problem: - Patient will require long-term ASA and plavix; if EGD negative, will probably need colonoscopy given fall in hgb (10 points) despite lack of GI bleeding. - Will recheck CBC in AM to determine trend. Subjective Date of service: 11/29/16 Principal diagnosis: N/V Interval history: The patient is tolerating a liquid diet, but still has nausea. However, he is also having BMs. No F/C and denies severe abdominal pain when not vomiting. Objective - Constitutional Vitals: Temp Pulse Resp BP Pulse Ox 98.5 F 72 22 142/70 98 11/29/16 08:00 11/29/16 09:13 11/29/16 08:00 11/29/16 09:13 11/29/16 08:00 General appearance: no acute distress - Respiratory Respiratory effort: normal Respiratory: bilateral: CTA - Cardiovascular Rhythm: regular Heart Sounds: Present: S1 & S2 - Gastrointestinal General gastrointestinal: Present: soft, non-tender, non-distended - Labs CBC & Chem 7: 11/22/16 04:14 11/22/16 04:14 Labs: Laboratory Results - last 24 hr 11/28/16 22:42 POC Glucose 92
[2016-11-29 20:42] LABS: Albumin 2.6 g/dL (3.9-5); Albumin/Globulin Ratio 0.6 %; Bilirubin,Total 0.5 mg/dL (0.1-1.2); Calcium 8.6 mg/dL (8.4-10.2); Chloride 102.9 mmol/L (98-107); Potassium 4.1 mmol/L (3.6-5.0); Total Protein 7.2 g/dL (6.3-8.2)
[2016-11-30] MEDS: LEVEMIR SUB-Q SCH ×2 (00:12→22:50)
[2016-11-30] MEDS: ZOCOR PO SCH ×2 (00:13→22:49)
[2016-11-30] MEDS: XALATAN 0.005% OU SCH ×2 (00:17→21:00)
[2016-11-30] MEDS: NOVOLOG SUB-Q SCH ×5 (00:18→22:00)
--- NOTE | 2016-11-30 00:21 | Cat Scan Report ---
FINAL REPORT PROCEDURE: CT ABDOMEN PELVIS W CON TECHNIQUE: Computerized axial tomography of the abdomen and pelvis was performed after the IV injection of iodinated nonionic contrast. HISTORY: N/V COMPARISON: No prior studies are available for comparison. FINDINGS: Visualized lower thorax: There is atelectasis and pleural thickening bilateral lower lungs. Underlying chronic obstructive changes are noted. The heart size is enlarged.. Liver: Normal size and attenuation. Spleen: Normal size and attenuation. Gallbladder and biliary system: The gallbladder is absent. No dilatation of the biliary ductal system.. Pancreas: Normal. Adrenals: Normal. Kidneys: Both kidneys have normal size. No hydronephrosis. No renal stones or masses. GI tract: The stomach is normal. A small hiatal hernia is identified. The small bowel has a normal caliber. No obstruction, ileus or enteritis. The cecum, appendix and colon are normal.. Lymph nodes and mesentery: Normal. Vasculature: Mild atherosclerosis of the aorta and branching vessels. Bladder: There is thickening of the urinary bladder wall consistent with cystitis.. Reproductive organs: The prostate gland is slightly enlarged.. Peritoneum: No free fluid. Musculoskeletal structures: There are degenerative changes of the thoracic and lumbar spine.. Other: None. IMPRESSION: There is no evidence of intestinal or urinary tract obstruction. No ileus or enteritis. The appendix is normal. Significant thickening of the urinary bladder wall consistent with cystitis. Bilateral lower lung atelectasis with mild pleural thickening. Underlying chronic obstructive changes are noted.
[2016-11-30 05:13] LABS: Hematocrit 28.5 % (35.5-45.6); Hemoglobin 9.8 gm/dl (11.8-15.2); Mean Corpuscular HGB Conc 34 % (32-34); Mean Corpuscular Hemoglobin 31 pg (28-32); Mean Corpuscular Volume 92 fl (84-94); Platelet Count 235 K/mm3 (140-440); Red Blood Count 3.11 M/mm3 (3.65-5.03); Red Cell Distribution Width 12.6 % (13.2-15.2); White Blood Count 5.6 K/mm3 (4.5-11.0)
[2016-11-30 05:36] LABS: Alanine Aminotransferase 8 units/L (7-56); Albumin 2.7 g/dL (3.9-5); Albumin/Globulin Ratio 0.6 %; Alkaline Phosphatase 88 units/L (35-129); BUN/Creatinine Ratio 13.84; Bilirubin,Total 0.5 mg/dL (0.1-1.2); Blood Urea Nitrogen 18 mg/dL (9-20); Calcium 8.7 mg/dL (8.4-10.2); Carbon Dioxide 27 mmol/L (22-30); Chloride 101.9 mmol/L (98-107); Glucose 129 mg/dL (75-100); Lipase 17 units/L (13-60); Potassium 4.1 mmol/L (3.6-5.0); Sodium 140 mmol/L (137-145); Total Protein 7.1 g/dL (6.3-8.2)
[2016-11-30 05:40] LABS: Anion Gap 15 mmol/L
[2016-11-30] MEDS: ZESTRIL PO SCH (08:00)
[2016-11-30] MEDS: LOVENOX SUB-Q SCH ×2 (08:00→18:26)
[2016-11-30] MEDS: HALFPRIN EC PO SCH (08:00)
[2016-11-30] MEDS: PLAVIX PO SCH (10:00)
[2016-11-30] MEDS: LEVAQUIN PO SCH (10:00)
[2016-11-30] MEDS ORDERED: NACL 0.9% 1000 ML 1,000 ML IV ONE (11:45)
--- NOTE | 2016-11-30 11:45 | Progress Note ---
Assessment and Plan 61 y.o. right handed male s/p left MCA CVA with ongoing right hemiparesis, dysarthria, and dysphagia Endoscopy - negative. CT of abdomen- negative for obstruction. still has N/V - s/p CVA- ongoing right hemiparesis, arm>leg; continue ASA, Plavix, statin - gait dysfunction secondary to CVA- cont. PT. 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 trial of Vital stim. - HTN- stable; continue to follow - DM- good control; continue to follow - right diabetic foot ulcer- ongoing wound care. - Urinary incontinence -on Levaquin. C/S - possible contamination. will finish a course of Levaquin. add Flomax for frequency. - DVT px- lovenox -r/o gastroparesis due to DM - Endoscopy -negative. CT - negative for obstruction. on NPO for gastric emptying scan. increase dose of zofran to 8 mg po q8hrs. will give him IVF. c/o mild thirsty. - Patient Problems (1) Acute ischemic left middle cerebral artery (MCA) stroke Current Visit: Yes Status: Acute (2) Diabetic foot ulcer Current Visit: Yes Status: Chronic Qualifiers: Diabetes mellitus type: type 2 Laterality: right Qualified Code(s): E11.621 - Type 2 diabetes mellitus with foot ulcer; L97.519 - Non-pressure chronic ulcer of other part of right foot with unspecified severity (3) HTN (hypertension) Current Visit: Yes Status: Chronic Qualifiers: Hypertension type: essential hypertension Qualified Code(s): I10 - Essential (primary) hypertension (4) Type 2 diabetes mellitus Current Visit: Yes Status: Chronic Qualifiers: Diabetes mellitus complication status: with neurologic complications Diabetes mellitus complication detail: with polyneuropathy Diabetes mellitus jail insulin use: with jail use Qualified Code(s): E11.42 - Type 2 diabetes mellitus with diabetic polyneuropathy; Z79.4 - [facility] (current) use of insulin (5) ARF (acute renal failure) Current Visit: No Status: Acute (6) Abnormality of gait following cerebrovascular accident (CVA) Current Visit: No Status: Acute (7) CVA (cerebral vascular accident) Current Visit: No Status: Acute Qualifiers: CVA mechanism: unspecified Qualified Code(s): I63.9 - Cerebral infarction, unspecified Subjective Date of service: 11/30/16 Principal diagnosis: N/V Interval history: patient seen and examined. Endoscopy is negative. still has N/V with food. CT of abdomen shows no obstruction. on NPO for gastric emptying scan. c/o thirsty Objective - Constitutional Vitals: Vital Signs - 12hr 11/30/16 07:30 Temperature 98.1 F Pulse Rate [ 68 Left Brachial] Respiratory 18 Rate Blood Pressure 153/62 [Left Arm] O2 Sat by Pulse 97 Oximetry General appearance: Present: no acute distress - EENT Eyes: PERRL ENT: hearing intact - Neck Neck: supple - Respiratory Respiratory effort: normal Respiratory: bilateral: CTA - Breasts Breasts: deferred - Cardiovascular Rhythm: regular Heart Sounds: Present: S1 & S2 Extremities: no ischemia, pulses intact - Gastrointestinal General gastrointestinal: Present: soft, non-tender, non-distended - Genitourinary Male genitourinary: deferred - Integumentary Integumentary: clear, warm, dry - Musculoskeletal Musculoskeletal: right sided weakness - Neurologic Neurologic: focal deficits (dysarthria), moves all extremities - Psychiatric Psychiatric: appropriate mood/affect - Allied health notes Allied health notes reviewed: nursing, PT, ST, OT - Labs CBC & Chem 7: 11/30/16 04:28 11/30/16 04:28 Labs: Abnormal lab results 11/29/16 11/29/16 11/29/16 Range/Units 13:10 17:15 19:58 RBC (3.65-5.03) M/mm3 Hgb (11.8-15.2) gm/dl Hct (35.5-45.6) % RDW (13.2-15.2) % BUN 21 H (9-20) mg/dL Glucose (75-100) mg/dL POC Glucose 146 H 186 H (70-105) Albumin (3.9-5) g/dL 11/29/16 11/29/16 11/30/16 Range/Units 19:58 21:18 04:28 RBC (3.65-5.03) M/mm3 Hgb (11.8-15.2) gm/dl Hct (35.5-45.6) % RDW (13.2-15.2) % BUN 21 H (9-20) mg/dL Glucose 141 H 129 H (75-100) mg/dL POC Glucose 156 H (70-105) Albumin 2.6 L 2.7 L (3.9-5) g/dL 11/30/ Range/Units 04:28 RBC 3.11 L (3.65-5.03) M/mm3 Hgb 9.8 L (11.8-15.2) gm/dl Hct 28.5 L (35.5-45.6) % RDW 12.6 L (13.2-15.2) % BUN (9-20) mg/dL Glucose (75-100) mg/dL POC Glucose (70-105) Albumin (3.9-5) g/dL
--- NOTE | 2016-11-30 15:26 | Nuclear Medicine Report ---
Gastric emptying scan: Following ingestion of technetium 99 and sulfur colloid tagged oatmeal the patient demonstrates a one half gastric emptying time of 89 minutes which is at the margin of our upper accepted normal of 90 minutes.
--- NOTE | 2016-11-30 21:10 | Gastroenterology Progress Note ---
Assessment and Plan chronic nausea/vomitting - EGD unremarkable, CT scan w/o significant findings to explain symptoms, GES was within upper limit of normal although this was a 2 hour study as opposed to more accurate 4 hour study. He is tolerating clear diet this morning. Recommend nutrition consult. No further recommendations from GI at this time, please call with question. Subjective Date of service: 11/30/16 Principal diagnosis: N/V Interval history: Pt receiving rehab during visit. feeling better, tolerating some clears w/o n/ v. denies abdominal pain. Objective - Constitutional Vitals: Temp Pulse Resp BP Pulse Ox 99.5 F 72 20 131/58 99 11/30/16 16:30 11/30/16 16:30 11/30/16 16:30 11/30/16 16:30 11/30/16 16:30 General appearance: no acute distress - Respiratory Respiratory: bilateral: CTA - Cardiovascular Rhythm: regular Heart Sounds: Present: S1 & S2 - Gastrointestinal General gastrointestinal: Present: soft, non-tender, non-distended, normal bowel sounds - Neurologic Neurological: alert and oriented x3 - Psychiatric Psychiatric: appropriate mood/affect - Labs CBC & Chem 7: 11/30/16 04:28 11/30/16 04:28 Labs: Laboratory Results - last 24 hr 11/29/16 11/29/16 11/30/16 13:10 21:18 04:28 WBC RBC Hgb Hct MCV MCH MCHC RDW Plt Count Sodium 140 Potassium 4.1 Chloride 101.9 Carbon Dioxide 27 Anion Gap 15 BUN 18 Creatinine 1.3 Estimated GFR > 60 BUN/Creatinine Ratio 13.84 Glucose 129 H POC Glucose 146 H 156 H Calcium 8.7 Total Bilirubin 0.5 AST 14 ALT 8 Alkaline Phosphatase 88 Total Protein 7.1 Albumin 2.7 L Albumin/Globulin Ratio 0.6 Lipase 17 11/30/16 11/30/16 11/30/16 04:28 11:07 17:17 WBC 5.6 RBC 3.11 L Hgb 9.8 L Hct 28.5 L MCV 92 MCH 31 MCHC 34 RDW 12.6 L Plt Count 235 Sodium Potassium Chloride Carbon Dioxide Anion Gap BUN Creatinine Estimated GFR BUN/Creatinine Ratio Glucose POC Glucose 122 H 179 H Calcium Total Bilirubin AST ALT Alkaline Phosphatase Total Protein Albumin Albumin/Globulin Ratio Lipase - Imaging x-ray: report reviewed CT scan: report reviewed
[2016-12-01] MEDS: NOVOLOG SUB-Q SCH ×3 (08:39→18:22)
[2016-12-01] MEDS: ZESTRIL PO SCH (08:41)
[2016-12-01] MEDS: FLOMAX PO SCH (08:41)
[2016-12-01] MEDS: LOVENOX SUB-Q SCH (08:42)
[2016-12-01] MEDS: HALFPRIN EC PO SCH (08:42)
[2016-12-01] MEDS: LEVAQUIN PO SCH (09:27)
[2016-12-01] MEDS: PLAVIX PO SCH (09:27)
--- NOTE | 2016-12-01 10:54 | Progress Note ---
Assessment and Plan 61 y.o. right handed male s/p left MCA CVA with ongoing right hemiparesis, dysarthria, and dysphagia Endoscopy - negative. CT of abdomen- negative for obstruction. Gastric emptying scan-negative. still has N/V - s/p CVA- ongoing right hemiparesis, arm>leg; continue ASA, Plavix, statin - gait dysfunction secondary to CVA- cont. PT. 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 cont. Vital stim. - HTN- stable; continue to follow - DM- good control; continue to follow - right diabetic foot ulcer- ongoing wound care. no drainage today. wound culture - large skin normal elie growth. - Urinary incontinence -on Levaquin. C/S - possible contamination. will finish a course of Levaquin. cont. Flomax for frequency. - DVT px- lovenox -r/o gastroparesis due to DM - Endoscopy/CT/Gastric emptying scan -negative. GI signed off. GI f/u appreciated. cont. zofran to 8 mg po q8hrs. - Patient Problems (1) Acute ischemic left middle cerebral artery (MCA) stroke Current Visit: Yes Status: Acute (2) Diabetic foot ulcer Current Visit: Yes Status: Chronic Qualifiers: Diabetes mellitus type: type 2 Laterality: right Qualified Code(s): E11.621 - Type 2 diabetes mellitus with foot ulcer; L97.519 - Non-pressure chronic ulcer of other part of right foot with unspecified severity (3) HTN (hypertension) Current Visit: Yes Status: Chronic Qualifiers: Hypertension type: essential hypertension Qualified Code(s): I10 - Essential (primary) hypertension (4) Type 2 diabetes mellitus Current Visit: Yes Status: Chronic Qualifiers: Diabetes mellitus complication status: with neurologic complications Diabetes mellitus complication detail: with polyneuropathy Diabetes mellitus halfway insulin use: with terminal system operator use Qualified Code(s): E11.42 - Type 2 diabetes mellitus with diabetic polyneuropathy; Z79.4 - [facility] (current) use of insulin (5) ARF (acute renal failure) Current Visit: No Status: Acute (6) Abnormality of gait following cerebrovascular accident (CVA) Current Visit: No Status: Acute (7) CVA (cerebral vascular accident) Current Visit: No Status: Acute Qualifiers: CVA mechanism: unspecified Qualified Code(s): I63.9 - Cerebral infarction, unspecified Subjective Date of service: 12/01/16 Principal diagnosis: N/V Interval history: patient seen and examined. gastric empty scan negative. c/o N/V with food. GI signed off. observed PT/Speech sessions. participating well. Objective - Constitutional Vitals: Vital Signs - 12hr 12/01/16 12/01/16 12/01/16 04:00 08:00 08:41 Temperature 97.2 F L Pulse Rate 72 Pulse Rate [ 72 Left Brachial] Respiratory 20 Rate Respiratory 2 L Rate [Left Hip] Blood Pressure 160/77 Blood Pressure 160/77 [Left Arm] O2 Sat by Pulse 98 Oximetry General appearance: Present: no acute distress - EENT Eyes: PERRL ENT: hearing intact - Neck Neck: supple - Respiratory Respiratory effort: normal Respiratory: bilateral: CTA - Cardiovascular Rhythm: regular Heart Sounds: Present: S1 & S2 Extremities: no ischemia, abnormal (foot ulcer- dry, no drainage.) - Gastrointestinal General gastrointestinal: Present: soft, non-tender, non-distended - Integumentary Integumentary: clear, warm - Musculoskeletal Musculoskeletal: right sided weakness - Neurologic Neurologic: focal deficits (dysarthria/dysphagia) - Psychiatric Psychiatric: appropriate mood/affect - Allied health notes Allied health notes reviewed: nursing, PT, ST, OT - Labs CBC & Chem 7: 11/30/16 04:28 11/30/16 04:28 Labs: Abnormal lab results 11/30/16 11/30/16 11/30/16 Range/Units 11:07 17:17 21:34 POC Glucose 122 H 179 H 174 H (70-105) 12/01/16 Range/Units 06:45 POC Glucose 112 H (70-105)
[2016-12-01] MEDS: LEVEMIR SUB-Q SCH (21:00)
[2016-12-01] MEDS: XALATAN 0.005% OU SCH (21:44)
[2016-12-01] MEDS: ZOCOR PO SCH (21:44)
[2016-12-02] MEDS: LOVENOX SUB-Q SCH (07:57)
[2016-12-02] MEDS: NOVOLOG SUB-Q SCH ×4 (07:57→22:11)
[2016-12-02] MEDS: FLOMAX PO SCH (07:57)
[2016-12-02] MEDS: HALFPRIN EC PO SCH (07:57)
[2016-12-02] MEDS: ZESTRIL PO SCH (07:58)
[2016-12-02] MEDS ORDERED: REGLAN PO PRN (08:28)
--- NOTE | 2016-12-02 08:31 | Progress Note ---
Assessment and Plan 61 y.o. right handed male s/p left MCA CVA with ongoing right hemiparesis, dysarthria, and dysphagia Endoscopy - negative. CT of abdomen- negative for obstruction. Gastric emptying scan-negative. still has N/V with food. - s/p CVA- ongoing right hemiparesis, arm>leg; continue ASA, Plavix, statin - gait dysfunction secondary to CVA- cont. PT. 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 cont. Vital stim. - HTN- stable; continue to follow. 133/80 - DM- good control; continue to follow - right diabetic foot ulcer- ongoing wound care. no drainage today. wound culture - large skin normal elie growth. - Urinary incontinence -on Levaquin. C/S - possible contamination. will finish a course of Levaquin. cont. Flomax for frequency. - DVT px- lovenox -r/o gastroparesis due to DM - Endoscopy/CT/Gastric emptying scan -negative. GI signed off. GI f/u appreciated. cont. zofran to 8 mg po q8hrs. add reglan 10 mg po q6hrs prn as well. - Patient Problems (1) Acute ischemic left middle cerebral artery (MCA) stroke Current Visit: Yes Status: Acute (2) Diabetic foot ulcer Current Visit: Yes Status: Chronic Qualifiers: Diabetes mellitus type: type 2 Laterality: right Qualified Code(s): E11.621 - Type 2 diabetes mellitus with foot ulcer; L97.519 - Non-pressure chronic ulcer of other part of right foot with unspecified severity (3) HTN (hypertension) Current Visit: Yes Status: Chronic Qualifiers: Hypertension type: essential hypertension Qualified Code(s): I10 - Essential (primary) hypertension (4) Type 2 diabetes mellitus Current Visit: Yes Status: Chronic Qualifiers: Diabetes mellitus complication status: with neurologic complications Diabetes mellitus complication detail: with polyneuropathy Diabetes mellitus [facility] insulin use: 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 still c/o Nausea with food. doing well with Vital stim Objective - Constitutional Vitals: Vital Signs - 12hr 12/01/16 12/02/16 12/02/16 22:00 07:58 08:19 Temperature 97.6 F Pulse Rate 81 Pulse Rate [ 81 Right Dorsalis Pedis] Respiratory 18 22 Rate Blood Pressure 133/79 Blood Pressure 133/79 [Left Arm] O2 Sat by Pulse 99 Oximetry General appearance: Present: no acute distress - EENT Eyes: PERRL ENT: hearing intact - Neck Neck: supple - Respiratory Respiratory effort: normal Respiratory: bilateral: CTA, negative: rales, rhonchi - Cardiovascular Rhythm: regular Heart Sounds: Present: S1 & S2 Extremities: no ischemia, pulses intact, No edema - Gastrointestinal Rectal Exam: deferred - Genitourinary Male genitourinary: deferred - Integumentary Integumentary: clear, warm, dry - Musculoskeletal Musculoskeletal: right sided weakness - Neurologic Neurologic: focal deficits (dysarthria, right facial palsy) - Psychiatric Psychiatric: appropriate mood/affect, intact judgment & insight - Allied health notes Allied health notes reviewed: nursing, PT, ST, OT - Labs CBC & Chem 7: 11/30/16 04:28 11/30/16 04:28 Labs: Abnormal lab results 12/01/16 12/01/16 12/01/16 Range/Units 12:40 17:01 21:40 POC Glucose 119 H 155 H 165 H (70-105) 12/02/16 Range/Units 06:11 POC Glucose 121 H (70-105)
[2016-12-02] MEDS: LEVAQUIN PO SCH (09:07)
[2016-12-02] MEDS: PLAVIX PO SCH (09:07)
[2016-12-02] MEDS: LEVEMIR SUB-Q SCH (21:00)
[2016-12-02] MEDS: XALATAN 0.005% OU SCH (22:10)
[2016-12-02] MEDS: ZOCOR PO SCH (22:10)
[2016-12-03] MEDS: NOVOLOG SUB-Q SCH ×4 (08:47→22:59)
[2016-12-03] MEDS: ZESTRIL PO SCH (08:48)
[2016-12-03] MEDS: PLAVIX PO SCH (09:52)
[2016-12-03] MEDS: FLOMAX PO SCH (09:52)
[2016-12-03] MEDS: LOVENOX SUB-Q SCH (09:52)
[2016-12-03] MEDS: HALFPRIN EC PO SCH (09:52)
[2016-12-03] MEDS: LEVAQUIN PO SCH (09:52)
[2016-12-03] MEDS: ZOFRAN PO PRN (11:15)
--- NOTE | 2016-12-03 13:05 | Progress Note ---
Assessment and Plan 61 y.o. 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 currently due to N/V - likely gastroparesis secondary to DM- GI workup negative; will initiate on scheduled reglan before meals; prn zofran - HTN- intermittent episodes of hypotension; follow and reduce lisinopril dose if continues - DM- stable on current regimen - right diabetic foot ulcer- continue wound care - DVT px- lovenox - Patient Problems (1) Acute ischemic left middle cerebral artery (MCA) stroke Current Visit: Yes Status: Acute (2) Dysarthria as late effect of cerebrovascular accident (CVA) Current Visit: No Status: Acute (3) Dysphagia as late effect of cerebrovascular accident (CVA) Current Visit: No Status: Acute (4) Hemiparesis affecting right side as late effect of cerebrovascular accident Current Visit: No Status: Acute (5) HTN (hypertension) Current Visit: Yes Status: Chronic Qualifiers: Hypertension type: essential hypertension Qualified Code(s): I10 - Essential (primary) hypertension (6) Type 2 diabetes mellitus Current Visit: Yes Status: Chronic Qualifiers: Diabetes mellitus complication status: with neurologic complications Diabetes mellitus complication detail: with polyneuropathy Diabetes mellitus supervisor intermediates insulin use: with supervisor intermediates use Qualified Code(s): E11.42 - Type 2 diabetes mellitus with diabetic polyneuropathy; Z79.4 - senior living (current) use of insulin (7) Diabetic foot ulcer Current Visit: Yes Status: Chronic Qualifiers: Diabetes mellitus type: type 2 Laterality: right Qualified Code(s): E11.621 - Type 2 diabetes mellitus with foot ulcer; L97.519 - Non-pressure chronic ulcer of other part of right foot with unspecified severity (8) Abnormality of gait following cerebrovascular accident (CVA) Current Visit: No Status: Acute (9) Gastroparesis due to DM Current Visit: Yes Status: Acute Subjective Date of service: 12/03/16 Principal diagnosis: s/p CVA Interval history: Pt seen in room this AM, F/U IPR course, left MCA CVA. +episode of vomiting this AM; when seen in room, requesting to continue therapies Objective - Constitutional Vitals: Vital Signs - 12hr 12/03/16 12/03/16 12/03/16 08:00 08:48 10:23 Temperature 98.2 F Pulse Rate 85 Pulse Rate [ 85 81 Right Dorsalis Pedis] Respiratory 16 16 Rate Blood Pressure 91/60 Blood Pressure 91/60 124/75 [Left Arm] O2 Sat by Pulse 100 Oximetry General appearance: Present: no acute distress - EENT Eyes: EOM intact ENT: hearing intact - Neck Neck: supple, normal ROM - Respiratory Respiratory effort: normal Respiratory: bilateral: CTA - Cardiovascular Rhythm: regular Heart Sounds: Present: S1 & S2 Extremity abnormal: other (dressing to RLE) - Gastrointestinal General gastrointestinal: Present: soft, non-tender, non-distended, normal bowel sounds - Musculoskeletal Musculoskeletal: right sided weakness (2/5 RUE; 3/5 RLE) - Neurologic Neurologic: moves all extremities, other (ongoing dysarthria) - Psychiatric Psychiatric: appropriate mood/affect, cooperative - Allied health notes Allied health notes reviewed: PT (Ari/CGA for transfers; Ari for gait up to 90 feet with HW), OT (supervision to modA for ADLs; 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
[2016-12-03] MEDS ORDERED: REGLAN PO SCH (16:30)
[2016-12-03] MEDS: REGLAN PO SCH (17:35)
[2016-12-03] MEDS: ZOCOR PO SCH (21:46)
[2016-12-03] MEDS: XALATAN 0.005% OU SCH (21:48)
[2016-12-03] MEDS: LEVEMIR SUB-Q SCH (22:14)
[2016-12-04 04:56] LABS: Hematocrit 29.3 % (35.5-45.6); Hemoglobin 9.8 gm/dl (11.8-15.2); Mean Corpuscular HGB Conc 33 % (32-34); Mean Corpuscular Hemoglobin 31 pg (28-32); Mean Corpuscular Volume 92 fl (84-94); Platelet Count 219 K/mm3 (140-440); Red Blood Count 3.19 M/mm3 (3.65-5.03); Red Cell Distribution Width 13.1 % (13.2-15.2); White Blood Count 4.5 K/mm3 (4.5-11.0)
[2016-12-04 05:07] LABS: BUN/Creatinine Ratio 10.76; Blood Urea Nitrogen 14 mg/dL (9-20); Calcium 8.8 mg/dL (8.4-10.2); Carbon Dioxide 27 mmol/L (22-30); Chloride 102.6 mmol/L (98-107); Glucose 139 mg/dL (75-100); Potassium 3.9 mmol/L (3.6-5.0); Sodium 139 mmol/L (137-145)
[2016-12-04 05:09] LABS: Anion Gap 13 mmol/L
[2016-12-04] MEDS: NOVOLOG SUB-Q SCH ×3 (08:32→17:05)
[2016-12-04] MEDS: REGLAN PO SCH ×3 (10:25→17:31)
[2016-12-04] MEDS: ZESTRIL PO SCH (10:32)
[2016-12-04] MEDS: HALFPRIN EC PO SCH (10:32)
[2016-12-04] MEDS: FLOMAX PO SCH (10:33)
[2016-12-04] MEDS: LOVENOX SUB-Q SCH (10:33)
[2016-12-04] MEDS ORDERED: ZOFRAN IV ONE ×2 (11:48→12:01)
[2016-12-04] MEDS: PLAVIX PO SCH (12:29)
[2016-12-04] MEDS ORDERED: ZOFRAN PO PRN (13:38)
--- NOTE | 2016-12-04 15:16 | Progress Note ---
Assessment and Plan 61 y.o. 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 with RADIO EQUIPMENT INSTALLER; fluctuating dysarthria - likely gastroparesis secondary to DM- GI workup negative; continue scheduled reglan before meals; prn zofran; also add PPI - HTN- SBP range 100-173 on today; continue to follow closely - DM- stable; range in last 24 hours 123-151 - right diabetic foot ulcer- continue wound care - DVT px- lovenox - anemia- stable - team conference completed on today- pt is supervision for eating; Kathrine for grooming; Ari for bathing, UB dressing, toilet transfers, bed/chair/WC transfers; modA for LB dressing, toileting, shower transfers; ambulating 90 feet with HW, min-modA; modA for 12 stairs; Ari for verbal expression, supervision for problem solving and memory. Barriers- ongoing right sided weakness with diabetic foot ulcer, intermittent N/V; will need to advance diet within next 24 hours in preparation for d./c home at end of week. - Patient Problems (1) Acute ischemic left middle cerebral artery (MCA) stroke Current Visit: Yes Status: Acute (2) Dysarthria as late effect of cerebrovascular accident (CVA) Current Visit: No Status: Acute (3) Dysphagia as late effect of cerebrovascular accident (CVA) Current Visit: No Status: Acute (4) Hemiparesis affecting right side as late effect of cerebrovascular accident Current Visit: No Status: Acute (5) HTN (hypertension) Current Visit: Yes Status: Chronic Qualifiers: Hypertension type: essential hypertension Qualified Code(s): I10 - Essential (primary) hypertension (6) Type 2 diabetes mellitus Current Visit: Yes Status: Chronic Qualifiers: Diabetes mellitus complication status: with neurologic complications Diabetes mellitus complication detail: with polyneuropathy Diabetes mellitus irish moss bleacher insulin use: with irish moss bleacher use Qualified Code(s): E11.42 - Type 2 diabetes mellitus with diabetic polyneuropathy; Z79.4 - penitentiary (current) use of insulin (7) Diabetic foot ulcer Current Visit: Yes Status: Chronic Qualifiers: Diabetes mellitus type: type 2 Laterality: right Qualified Code(s): E11.621 - Type 2 diabetes mellitus with foot ulcer; L97.519 - Non-pressure chronic ulcer of other part of right foot with unspecified severity (8) Abnormality of gait following cerebrovascular accident (CVA) Current Visit: No Status: Acute (9) Gastroparesis due to DM Current Visit: Yes Status: Acute (10) Anemia Current Visit: Yes Status: Acute Subjective Date of service: 12/04/16 Principal diagnosis: s/p CVA Interval history: Pt seen in room this afternoon, F/U IPR course, left MCA CVA. continues with vomiting episodes; generally, one episode per day, between breakfast and lunch following coughing Objective - Constitutional Vitals: Vital Signs - 12hr 12/04/16 12/04/16 12/04/16 08:00 10:00 10:32 Temperature 97.7 F Pulse Rate 67 Pulse Rate [ 67 Right Dorsalis Pedis] Respiratory 18 Rate Blood Pressure 173/80 Blood Pressure 173/80 [Left Arm] O2 Sat by Pulse 98 67 L Oximetry 12/04/16 14:43 Temperature 97.3 F L Pulse Rate Pulse Rate [ 71 Right Dorsalis Pedis] Respiratory 20 Rate Blood Pressure Blood Pressure 100/64 [Left Arm] O2 Sat by Pulse 100 Oximetry General appearance: Present: no acute distress - EENT Eyes: EOM intact ENT: hearing intact - Neck Neck: supple - Respiratory Respiratory effort: normal Respiratory: bilateral: CTA - Cardiovascular Rhythm: regular Heart Sounds: Present: S1 & S2 Extremity abnormal: other (adaptive shoe to Rt foot) - Gastrointestinal General gastrointestinal: Present: soft, non-tender, non-distended, normal bowel sounds - Musculoskeletal Musculoskeletal: right sided weakness - Neurologic Neurologic: other (stable facial droop; dysarthria) - Psychiatric Psychiatric: appropriate mood/affect, cooperative - Labs CBC & Chem 7: 12/04/16 04:28 12/04/16 04:28 Labs: Abnormal lab results 12/03/16 12/03/16 12/04/16 Range/Units 16:46 21:04 04:28 RBC 3.19 L (3.65-5.03) M/mm3 Hgb 9.8 L (11.8-15.2) gm/dl Hct 29.3 L (35.5-45.6) % RDW 13.1 L (13.2-15.2) % Glucose (75-100) mg/dL POC Glucose 129 H 151 H (70-105) 12/04/16 12/04/16 Range/Units 04:28 06:48 RBC (3.65-5.03) M/mm3 Hgb (11.8-15.2) gm/dl Hct (35.5-45.6) % RDW (13.2-15.2) % Glucose 139 H (75-100) mg/dL POC Glucose 123 H (70-105)
[2016-12-04] MEDS: PROTONIX PO SCH (17:34)
[2016-12-05] MEDS: NOVOLOG SUB-Q SCH ×4 (07:30→22:00)
[2016-12-05] MEDS: LOVENOX SUB-Q SCH (10:08)
[2016-12-05] MEDS: HALFPRIN EC PO SCH (10:09)
[2016-12-05] MEDS: PLAVIX PO SCH (10:09)
[2016-12-05] MEDS: REGLAN PO SCH ×3 (10:09→16:18)
[2016-12-05] MEDS: ZESTRIL PO SCH (10:10)
[2016-12-05] MEDS: FLOMAX PO SCH (10:10)
[2016-12-05] MEDS: PROTONIX PO SCH (10:10)
--- NOTE | 2016-12-05 13:13 | Progress Note ---
Assessment and Plan 61 y.o. right handed male s/p left MCA CVA with ongoing right hemiparesis, dysarthria, and dysphagia - s/p CVA- ASA, Plavix, statin - gait dysfunction secondary to CVA- min-modA for gait; gait distance has improved from 30 to 90 feet since admission - dysarthria/dysphagia- continue to address in NETSUITE CONSULTANT - likely gastroparesis secondary to DM- GI workup negative; continue scheduled reglan before meals, PPI QAM; prn zofran - HTN- BP in better range on today - DM- good control - right diabetic foot ulcer- ongoing wound care - DVT px- lovenox - family training with on today - Patient Problems (1) Acute ischemic left middle cerebral artery (MCA) stroke Current Visit: Yes Status: Acute (2) Dysarthria as late effect of cerebrovascular accident (CVA) Current Visit: No Status: Acute (3) Dysphagia as late effect of cerebrovascular accident (CVA) Current Visit: No Status: Acute (4) Hemiparesis affecting right side as late effect of cerebrovascular accident Current Visit: No Status: Acute (5) HTN (hypertension) Current Visit: Yes Status: Chronic Qualifiers: Hypertension type: essential hypertension Qualified Code(s): I10 - Essential (primary) hypertension (6) Type 2 diabetes mellitus Current Visit: Yes Status: Chronic Qualifiers: Diabetes mellitus complication status: with neurologic complications Diabetes mellitus complication detail: with polyneuropathy 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 insulin use: with halfway use Qualified Code(s): E11.42 - Type 2 diabetes mellitus with diabetic polyneuropathy; Z79.4 - assisted (current) use of insulin (7) Diabetic foot ulcer Current Visit: Yes Status: Chronic Qualifiers: Diabetes mellitus type: type 2 Laterality: right Qualified Code(s): E11.621 - Type 2 diabetes mellitus with foot ulcer; L97.519 - Non-pressure chronic ulcer of other part of right foot with unspecified severity (8) Abnormality of gait following cerebrovascular accident (CVA) Current Visit: No Status: Acute (9) Gastroparesis due to DM Current Visit: Yes Status: Acute Subjective Date of service: 12/05/16 Principal diagnosis: s/p CVA Interval history: Pt seen in room this AM, F/U IPR course, left MCA CVA. Pt reports nausea, but no vomiting; discussed timing of reglan with nursing as pt needs to get this prior to meals; present for family training, all questions answered Objective - Constitutional Vitals: Vital Signs - 12hr 12/05/16 12/05/16 08:25 10:10 Temperature 97.7 F Pulse Rate 71 Pulse Rate [ 71 Right Dorsalis Pedis] Respiratory 20 Rate Blood Pressure 148/76 Blood Pressure 148/76 [Left Arm] O2 Sat by Pulse 97 Oximetry General appearance: Present: mild distress (nausea) - EENT Eyes: EOM intact ENT: hearing intact - Neck Neck: supple, normal ROM - Respiratory Respiratory effort: normal - Gastrointestinal General gastrointestinal: Present: soft, non-tender, non-distended - Integumentary Integumentary: clear - Musculoskeletal Musculoskeletal: right sided weakness - Psychiatric Psychiatric: cooperative - Allied health notes Allied health notes reviewed: PT (min-modA for gait), OT (Kathrine to modA for ADLs) - Labs CBC & Chem 7: 12/04/16 04:28 12/04/16 04:28 Labs: Abnormal lab results 12/04/16 12/04/16 12/05/16 Range/Units 10:51 16:56 06:26 POC Glucose 152 H 146 H 109 H (70-105)
[2016-12-05] MEDS: LEVEMIR SUB-Q SCH (21:00)
[2016-12-05] MEDS: ZOCOR PO SCH (23:59)
[2016-12-06] MEDS: XALATAN 0.005% OU SCH ×2 (07:21→20:53)
[2016-12-06] MEDS: HALFPRIN EC PO SCH (08:30)
[2016-12-06] MEDS: PLAVIX PO SCH ×2 (08:30→12:16)
[2016-12-06] MEDS: FLOMAX PO SCH (08:30)
[2016-12-06] MEDS: LOVENOX SUB-Q SCH (08:30)
[2016-12-06] MEDS: PROTONIX PO SCH (08:30)
[2016-12-06] MEDS: REGLAN PO SCH ×3 (08:31→16:54)
[2016-12-06] MEDS: ZESTRIL PO SCH (08:31)
[2016-12-06] MEDS: NOVOLOG SUB-Q SCH ×4 (08:31→22:21)
--- NOTE | 2016-12-06 13:31 | Progress Note ---
Assessment and Plan 61 y.o. right handed male s/p left MCA CVA with ongoing right hemiparesis, dysarthria, and dysphagia - s/p CVA- ASA, Plavix, statin - gait dysfunction secondary to CVA- increased assistance needed on most recent sessions due to fatigue associated with vomiting - dysarthria/dysphagia- continue to address in MOLDER [employer]AT - likely gastroparesis secondary to DM- GI workup negative, intermittent nausea and vomiting; continue scheduled reglan before meals (again addressed with nursing), PPI QAM; prn zofran; if no improvement on tomorrow will reconsult GI - HTN- low BP noted overnight, however, now improved - DM- good control - right diabetic foot ulcer- wound stable; seen in f/u by wound care nurse on yesterday - DVT px- lovenox - family training with completed on yesterday; tentative d/c home if N/V have improved - Patient Problems (1) Acute ischemic left middle cerebral artery (MCA) stroke Current Visit: Yes Status: Acute (2) Dysarthria as late effect of cerebrovascular accident (CVA) Current Visit: No Status: Acute (3) Dysphagia as late effect of cerebrovascular accident (CVA) Current Visit: No Status: Acute (4) Hemiparesis affecting right side as late effect of cerebrovascular accident Current Visit: No Status: Acute (5) HTN (hypertension) Current Visit: Yes Status: Chronic Qualifiers: Hypertension type: essential hypertension Qualified Code(s): I10 - Essential (primary) hypertension (6) Type 2 diabetes mellitus Current Visit: Yes Status: Chronic Qualifiers: Diabetes mellitus complication status: with neurologic complications Diabetes mellitus complication detail: with polyneuropathy Diabetes 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 insulin use: with half-way use Qualified Code(s): E11.42 - Type 2 diabetes mellitus with diabetic polyneuropathy; Z79.4 - snf (current) use of insulin (7) Diabetic foot ulcer Current Visit: Yes Status: Chronic Qualifiers: Diabetes mellitus type: type 2 Laterality: right Qualified Code(s): E11.621 - Type 2 diabetes mellitus with foot ulcer; L97.519 - Non-pressure chronic ulcer of other part of right foot with unspecified severity (8) Abnormality of gait following cerebrovascular accident (CVA) Current Visit: No Status: Acute (9) Gastroparesis due to DM Current Visit: Yes Status: Acute Subjective Date of service: 12/06/16 Principal diagnosis: s/p CVA Interval history: Pt seen in room this AM, F/U IPR course, left MCA CVA. + episode of vomiting on today; timing of medications again discussed with nursing. No vomiting on yesterday; +BM on this AM Objective - Constitutional Vitals: Vital Signs - 12hr 12/06/16 12/06/16 07:30 08:31 Temperature 98.4 F Pulse Rate 66 Pulse Rate [ 66 Left Radial] Respiratory 18 Rate Blood Pressure 150/73 Blood Pressure 150/73 [Left Arm] O2 Sat by Pulse 99 Oximetry General appearance: Present: mild distress (+vomiting episode) - EENT ENT: hearing intact - Neck Neck: supple, normal ROM - Respiratory Respiratory effort: normal Respiratory: bilateral: CTA - Cardiovascular Rhythm: regular Heart Sounds: Present: S1 & S2 - Gastrointestinal General gastrointestinal: Present: soft, non-tender, non-distended, normal bowel sounds - Musculoskeletal Musculoskeletal: right sided weakness - Neurologic Neurologic: other (unchanged facial droop and dysarthria) - Psychiatric Psychiatric: cooperative - Allied health notes Allied health notes reviewed: PT (Ari for transfers; modAx2 for gait), OT ( Ari for dressing and transfers) - Labs CBC & Chem 7: 12/04/16 04:28 12/04/16 04:28 Labs: Abnormal lab results 12/05/16 12/05/16 Range/Units 16:12 22:52 POC Glucose 154 H 131 H (70-105)
[2016-12-06] MEDS: LEVEMIR SUB-Q SCH ×2 (20:46→20:49)
[2016-12-06] MEDS: ZOCOR PO SCH (20:46)
[2016-12-07] MEDS: REGLAN PO SCH ×3 (07:24→16:56)
[2016-12-07] MEDS: NOVOLOG SUB-Q SCH ×3 (07:30→16:56)
[2016-12-07] MEDS: HALFPRIN EC PO SCH (08:14)
[2016-12-07] MEDS: ZESTRIL PO SCH (08:14)
[2016-12-07] MEDS: PROTONIX PO SCH (08:14)
[2016-12-07] MEDS: FLOMAX PO SCH (08:14)
[2016-12-07] MEDS: LOVENOX SUB-Q SCH (08:14)
[2016-12-07 10:42] LABS: Potassium 3.8 mmol/L (3.6-5.0)
[2016-12-07] MEDS: PLAVIX PO SCH (11:41)
[2016-12-07] MEDS ORDERED: ZOFRAN IV PRN (13:47)
--- NOTE | 2016-12-07 13:50 | Progress Note ---
Assessment and Plan 61 y.o. right handed male s/p left MCA CVA with ongoing right hemiparesis, dysarthria, and dysphagia - s/p CVA- ASA, Plavix, statin - gait dysfunction secondary to CVA- Ari for transfers and gait; tolerated therapies on today prior to afternoon episode of vomiting - dysarthria/dysphagia- continue to address in WATER PUMPER - likely gastroparesis secondary to DM- GI workup negative, however, will reconsult as pt continues with intermittent nausea and vomiting of undigested food; continue scheduled reglan before meals, PPI QAM; prn zofran; downgrade from GI soft back to full liquid diet - HTN- lisinopril dose reduced to avoid PM hypotension - DM- stable - right diabetic foot ulcer- wound care - DVT px- lovenox - hold d/c; GI re-consulted - Patient Problems (1) Acute ischemic left middle cerebral artery (MCA) stroke Current Visit: Yes Status: Acute (2) Dysarthria as late effect of cerebrovascular accident (CVA) Current Visit: No Status: Acute (3) Dysphagia as late effect of cerebrovascular accident (CVA) Current Visit: No Status: Acute (4) Hemiparesis affecting right side as late effect of cerebrovascular accident Current Visit: No Status: Acute (5) HTN (hypertension) Current Visit: Yes Status: Chronic Qualifiers: Hypertension type: essential hypertension Qualified Code(s): I10 - Essential (primary) hypertension (6) Type 2 diabetes mellitus Current Visit: Yes Status: Chronic Qualifiers: Diabetes mellitus complication status: with neurologic complications Diabetes mellitus complication detail: with polyneuropathy Diabetes 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 terminal and repeater insulin use: with mcc use Qualified Code(s): E11.42 - Type 2 diabetes mellitus with diabetic polyneuropathy; Z79.4 - roasterman (current) use of insulin (7) Diabetic foot ulcer Current Visit: Yes Status: Chronic Qualifiers: Diabetes mellitus type: type 2 Laterality: right Qualified Code(s): E11.621 - Type 2 diabetes mellitus with foot ulcer; L97.519 - Non-pressure chronic ulcer of other part of right foot with unspecified severity (8) Abnormality of gait following cerebrovascular accident (CVA) Current Visit: No Status: Acute (9) Gastroparesis due to DM Current Visit: Yes Status: Acute Subjective Date of service: 12/07/16 Principal diagnosis: s/p CVA Interval history: Pt seen in room this AM and PM, F/U IPR course, left MCA CVA. Pt tolerated breakfast wwll, however, vomited later this afternoon; d/c to be held and GI to be re-consulted. Pt is vomiting undigested food Objective - Constitutional Vitals: Vital Signs - 12hr 12/07/16 12/07/16 07:30 08:14 Temperature 97.8 F Pulse Rate 72 Pulse Rate [ 72 Left Radial] Respiratory 20 Rate Blood Pressure 160/74 Blood Pressure 160/74 [Left Arm] O2 Sat by Pulse 98 Oximetry General appearance: Present: mild distress (nausea/vomiting this afternoon) - EENT Eyes: EOM intact ENT: hearing intact - Neck Neck: supple, normal ROM - Respiratory Respiratory effort: normal Respiratory: bilateral: CTA - Cardiovascular Rhythm: regular Heart Sounds: Present: S1 & S2 Extremities: No edema - Gastrointestinal General gastrointestinal: Present: soft, non-tender, non-distended, normal bowel sounds - Musculoskeletal Musculoskeletal: right sided weakness - Psychiatric Psychiatric: cooperative - Allied health notes Allied health notes reviewed: PT (Kathrine for bed mobility, min-CGA for transfers, Ari up to 128 feet with HW) - Labs CBC & Chem 7: 12/04/16 04:28 12/07/16 10:08 Labs: Abnormal lab results 12/06/16 12/06/16 12/06/16 Range/Units 12:40 17:54 21:49 Glucose (75-100) mg/dL POC Glucose 136 H 164 H 181 H (70-105) 12/07/16 12/07/16 12/07/16 Range/Units 06:43 10:08 12:44 Glucose 139 H (75-100) mg/dL POC Glucose 116 H 150 H (70-105)
[2016-12-07] MEDS: ZOCOR PO SCH (21:37)
[2016-12-07] MEDS: XALATAN 0.005% OU SCH (21:38)
[2016-12-07] MEDS: LEVEMIR SUB-Q SCH (21:52)
[2016-12-08] MEDS: NOVOLOG SUB-Q SCH ×3 (08:00→17:12)
[2016-12-08] MEDS: ZESTRIL PO SCH (09:00)
[2016-12-08] MEDS: LOVENOX SUB-Q SCH (10:20)
[2016-12-08] MEDS: REGLAN PO SCH ×3 (10:20→17:12)
[2016-12-08] MEDS: PROTONIX PO SCH (10:21)
[2016-12-08] MEDS: HALFPRIN EC PO SCH (10:21)
[2016-12-08] MEDS: PLAVIX PO SCH (10:21)
[2016-12-08] MEDS: FLOMAX PO SCH (10:22)
--- NOTE | 2016-12-08 16:00 | Progress Note ---
Assessment and Plan 1. N/V - resolved. Pt has intermittent symptoms that are most likely due to diabetic enteropathy and visceral nerve damage. If infrequent, no specific therapy. If becomes more frequent, would consider initiating TCAs at a low dose. Reglan should be continued only if beneficial symptomatically to patient. - no further GI recommendations. - please call as needed. Subjective Date of service: 12/08/16 Principal diagnosis: s/p CVA Interval history: Asked to see pt for reevaluation after an episode of N/V yesterday. Today, pt feels well and states he has done so since belching yesterday. No abd pain, N/ V. Tolerating po well. Pt originally seen 11/[address] Hart, and had an normal gastric emptying study. Pt has long standing hx of DM with neuropathy and complications. He has a long hx of intermittent N/V, though infrequent. He is s/p CCX. Objective - Constitutional Vitals: Vital Signs - 12hr 12/08/16 12/08/16 08:00 09:00 Temperature 98.1 F Pulse Rate [ 92 H Left Brachial] Respiratory 20 Rate Blood Pressure 103/59 Blood Pressure 103/59 [Left Arm] O2 Sat by Pulse 98 Oximetry General appearance: Present: no acute distress - EENT Eyes: PERRL, EOM intact ENT: hearing intact - Respiratory Respiratory effort: normal - Cardiovascular Rhythm: regular Heart Sounds: Present: S1 & S2 - Gastrointestinal General gastrointestinal: Present: soft, non-tender - Labs CBC & Chem 7: 12/04/16 04:28 12/07/16 10:08 Labs: Abnormal lab results 12/07/16 12/07/16 12/08/16 Range/Units 16:51 20:56 11:56 POC Glucose 123 H 180 H 121 H (70-105)
[2016-12-08] MEDS: LEVEMIR SUB-Q SCH (21:00)
[2016-12-08] MEDS: ZOCOR PO SCH (21:45)
[2016-12-09] MEDS: NOVOLOG SUB-Q SCH ×4 (06:15→17:07)
[2016-12-09] MEDS: REGLAN PO SCH ×4 (06:17→16:13)
[2016-12-09] MEDS: XALATAN 0.005% OU SCH (06:18)
[2016-12-09] MEDS: PROTONIX PO SCH (09:19)
[2016-12-09] MEDS: LOVENOX SUB-Q SCH (09:19)
[2016-12-09] MEDS: HALFPRIN EC PO SCH (09:19)
[2016-12-09] MEDS: PLAVIX PO SCH (09:19)
[2016-12-09] MEDS: FLOMAX PO SCH (09:19)
[2016-12-09] MEDS: ZESTRIL PO SCH (09:20)
[2016-12-09] MEDS: ZOCOR PO SCH (21:16)
[2016-12-09] MEDS: LEVEMIR SUB-Q SCH (21:17)
[2016-12-10] MEDS: REGLAN PO SCH ×2 (06:33→11:34)
[2016-12-10] MEDS: NOVOLOG SUB-Q SCH ×2 (07:45→11:30)
[2016-12-10] MEDS: PROTONIX PO SCH (08:38)
[2016-12-10] MEDS: PLAVIX PO SCH ×2 (08:38→09:05)
[2016-12-10] MEDS: HALFPRIN EC PO SCH (08:38)
[2016-12-10] MEDS: ZESTRIL PO SCH (08:38)
[2016-12-10] MEDS: LOVENOX SUB-Q SCH (08:38)
[2016-12-10 09:08] VITALS: BP 153/81
--- NOTE | 2016-12-10 11:41 | Discharge Summary ---
Providers - Providers Date of Admission: 11/21/16 19:23 Date of discharge: 12/10/16 Attending physician: OSMANI VALDERRAMA 12/03/16 13:02 Consult to Dietitian/Nutrition [CONS] Routine Physician Instructions: Reason For Exam: Reason for Consult: Poor oral intake 12/07/16 12:18 Consult to Physician [CONS] Routine Consulting Provider: QUE SHEEHAN Reason For Exam: re-assessment; persistent N/V Place consult to:: Drs' Office Notified:: Dr Tolliver Phone number called:: [phone] Was contact made?: Yes If yes, spoke with:: [place] Time called:: 14:50 Comment:: Dr Tolliver returned call. Will see tomorrow 11/21/16 19:48 Consult to Wound/ET Nurse [CONS] Routine Reason For Exam: wound eval, right foot Occupational Therapy Evaluate and Treat [CONS] Routine Comment: Reason For Exam: CVA Physical Therapy Evaluation and Treat [CONS] Routine Comment: Reason For Exam: CVA Speech Therapy Evaluation and Treat [CONS] Routine Reason For Exam: CVA 11/26/16 11:16 Consult to Physician [CONS] Routine Consulting Provider: QUE SHEEHAN Reason For Exam: Vomiting x2-3. s/p stroke. Place consult to:: Senior Java [id number] Developer Notified:: DR SHEEHAN Phone number called:: [phone] Was contact made?: Yes If yes, spoke with:: CATRACHITO Time called:: 11:10 Comment:: SPOKE WITH CATRACHITO Primary care physician: MAYO MORALES Hospitalization Reason for admission: Left MCA CVA Condition: Stable Hospital course: 61 y.o. right handed male admitted secondary to acute onset of dysarthria and right sided weakness after awakening from a nap at home. Patient was found to have acute ischemic changes noted at the left basal ganglia; left MCA CVA distribution. Pt continued with right sided weakness, arm>leg and dysarthria; also with dysphagia on pureed diet with thin liquids. Due to ongoing functional deficits following acute CVA, pt was admitted to IRU for aggressive therapies and ongoing medical management. IPR course notable for improvement in right extremity strength, improved functional independence; intermittent N/ V. GI was consulted and work-up was negative; likely secondary to DM gastroparesis. Initial D/C held due to persistent symptoms and GI reconsulted; however, no further recommendations made. Pt has now had 2 days without any N/ V after being downgraded back to full liquids from GI soft diet. Will maintain on Full liquids; pt and educated on gentle advancement of diet; F/U with GI as outpt and continue prn Reglan. Pt also continued to received wound care F /U for chronic diabetic right foot ulcer; will resume outpt wound care at discharge. Functionally, pt initially required Ari to supervision for bed mobility, Ari/CGA for transfers, modA for gait 30 feet; S/U to maxA for ADLs. Pt has now progressed to Kathrine for bed mobility and transfers; Ari for gait with HW; Independent to Ari for ADLs; pt is also with improved intelligibility of speech. Family training has been provided to patient and ; also heavily educated on F/U appts. Pt is stable for d/c home on today. >30 mins spent on d/c process, education, medication reconciliation Disposition: DISCHARGED TO HOME OR SELFCARE - Discharge Diagnoses (1) Acute ischemic left middle cerebral artery (MCA) stroke Status: Acute (2) Dysarthria as late effect of cerebrovascular accident (CVA) Status: Acute (3) Dysphagia as late effect of cerebrovascular accident (CVA) Status: Acute (4) Hemiparesis affecting right side as late effect of cerebrovascular accident Status: Acute (5) HTN (hypertension) Status: Chronic Qualifiers: Hypertension type: essential hypertension Qualified Code(s): I10 - Essential (primary) hypertension Comment: At present has very well controlled. We'll continue oral antihypertensives. (6) Type 2 diabetes mellitus Status: Chronic Qualifiers: Diabetes mellitus complication status: with neurologic complications Diabetes mellitus complication detail: with polyneuropathy Diabetes mellitus senior living insulin use: with senior living use Qualified Code(s): E11.42 - Type 2 diabetes mellitus with diabetic polyneuropathy; Z79.4 - ferry terminal agent (current) use of insulin (7) Diabetic foot ulcer Status: Chronic Qualifiers: Diabetes mellitus type: type 2 Laterality: right Qualified Code(s): E11.621 - Type 2 diabetes mellitus with foot ulcer; L97.519 - Non-pressure chronic ulcer of other part of right foot with unspecified severity (8) Abnormality of gait following cerebrovascular accident (CVA) Status: Acute (9) Gastroparesis due to DM Status: Acute Core Measure Documentation - Palliative Care Palliative Care/ Comfort Measures: Not Applicable - Core Measures Any of the following diagnoses?: stroke - Stroke Discharge Requirements Statin for LDL = or >70 mg/dl on DC: Yes Anticoag for atrial fib/atrial flutter: Not Applicable Antithrombotic for ischemic stroke: Yes Exam - Constitutional Vitals: Temp Pulse Resp BP Pulse Ox 97.8 F 75 18 153/81 94 12/10/16 07:35 12/10/16 08:38 12/10/16 07:35 12/10/16 08:38 12/10/16 07:35 General appearance: Present: no acute distress, other ( present) - EENT Eyes: Present: EOM intact ENT: hearing intact - Neck Neck: Present: supple, normal ROM - Respiratory Respiratory effort: normal Respiratory: bilateral: CTA - Cardiovascular Rhythm: regular Heart Sounds: Present: S1 & S2 - Abdominal General gastrointestinal: Present: soft, non-tender, non-distended, normal bowel sounds - Musculoskeletal Musculoskeletal: right sided weakness - Psychiatric Psychiatric: appropriate mood/affect, cooperative - Neurologic Neurologic: other (facial droop, dysarthria) Plan Activity: no driving until cleared by PCP, fall precautions Weight Bearing Status: Weight Bear as Tolerated Diet: diabetic (full liquids; advance as tolerated) Special Instructions: physical therapy, occupational therapy, other (BUSINESS INFO CONSULTANT; outpt therapies at [facility]) Durable Medical Equipment Needed Upon Discharge: Wheelchair, Bedside Commode, other (hemiwalker; [facility]) Follow up with: MAYO MORALES MD [Primary Care Provider] - 7 Days LOVELY COWAN MD [Staff Physician] - 7 Days AMIE ARELLANO MD [Staff Physician] - 7 Days Prescriptions: Insulin Detemir [Levemir] 5 units SUB-Q QHS 30 Days Simvastatin [Zocor TAB] 40 mg PO QHS #30 tablet Aspirin EC [Aspirin Enteric Coated TAB] 81 mg PO QDAY #30 tablet. Clopidogrel [Plavix] 75 mg PO DAILY #30 tablet Pantoprazole [Protonix TAB] 40 mg PO QDAY #30 tablet Metoclopramide [Reglan TAB] 5 mg PO AC PRN #30 tablet PRN Reason: Nausea And Vomiting Lisinopril [Zestril TAB] 10 mg PO QDAY #30 tablet
== END 2016-12-10 13:05 | disposition home or self-care (01) | DRG 65 ==
LOC: 3B 19:23
PROVIDERS: ADMIT Family Medicine; ATTEND Family Medicine
PROC: 0DJ08ZZ Inspection of Upper Intestinal Tract, Via Natural or Artificial Opening Endoscopic (ICD-10-PCS; principal; 2016-11-28)
DX: I63.9 Cerebral infarction, unspecified (principal); N17.9 Acute kidney failure, unspecified; G81.01 Flaccid hemiplegia affecting right dominant side; E11.621 Type 2 diabetes mellitus with foot ulcer; L97.519 Non-pressure chronic ulcer of other part of right foot with unspecified severity; I10 Essential (primary) hypertension; E78.5 Hyperlipidemia, unspecified; E11.42 Type 2 diabetes mellitus with diabetic polyneuropathy; B19.20 Unspecified viral hepatitis C without hepatic coma; D64.9 Anemia, unspecified; E11.43 Type 2 diabetes mellitus with diabetic autonomic (poly)neuropathy; I95.9 Hypotension, unspecified; K31.84 Gastroparesis; R29.810 Facial weakness; R47.1 Dysarthria and anarthria; R13.10 Dysphagia, unspecified; R26.9 Unspecified abnormalities of gait and mobility; R32 Unspecified urinary incontinence; Z98.890 Other specified postprocedural states; Z98.49 Cataract extraction status, unspecified eye; Z89.421 Acquired absence of other right toe(s); Z79.82 Long term (current) use of aspirin; Z79.899 Other long term (current) drug therapy; Z79.4 Long term (current) use of insulin; Z83.3 Family history of diabetes mellitus; Z82.49 Family history of ischemic heart disease and other diseases of the circulatory system; Z82.3 Family history of stroke; Z79.02 Long term (current) use of antithrombotics/antiplatelets
CPT/HCPCS: 36415; 74177; 78264; 80048; 80053; 81001; 82565; 82962; 83690; 84520; 85025; 85027; 87076; 87086; 87116; 87186; 87517; A9541; J1650; J1815; J1818; J2405; J7030; Q0162; Q9967

== ENCOUNTER 2016-12-19 09:49 | Outpatient (CLI) | payer MEDICARE ==
[2016-12-19] MEDS ORDERED: XYLOCAINE TOPICAL 2% ONE (10:13)
[2016-12-19] MEDS ORDERED: XYLOCAINE TOPICAL 4% TP ONE (10:19)
== END 2016-12-19 09:50 | disposition home or self-care (01) ==
LOC: WOUND 09:49
PROVIDERS: ATTEND Orthopaedic Surgery
DX: E11.621 Type 2 diabetes mellitus with foot ulcer (principal); L97.511 Non-pressure chronic ulcer of other part of right foot limited to breakdown of skin; I10 Essential (primary) hypertension; Z86.73 Personal history of transient ischemic attack (TIA), and cerebral infarction without residual deficits; Z87.891 Personal history of nicotine dependence
CPT/HCPCS: 87075; 87076; 87116; 87186

== ENCOUNTER 2016-12-20 10:50 | Outpatient (CLI) | payer MEDICARE ==
--- NOTE | 2016-12-20 11:48 | XRay Report ---
Right foot 3 views: Compared to 01/28/16. History: Osteomyelitis right foot. Diabetic foot ulcer. Findings: Patient is status post partial amputation proximal phalanx great toe and second toe. Old fracture of the distal aspect of third metatarsal. Severe arthritic changes at the first tarsometatarsal joint and metatarsophalangeal joint with deformity at the base of the first metatarsal and severe arthritic changes of the intertarsal joints. Stable metallic screws at the medial aspect of the hindfoot. No significant interval change. No acute fracture. Impression: No significant interval change.
== END 2016-12-20 10:51 | disposition home or self-care (01) ==
LOC: XRAY 10:50
PROVIDERS: ATTEND Orthopaedic Surgery
DX: E11.621 Type 2 diabetes mellitus with foot ulcer (principal); S92.331G Displaced fracture of third metatarsal bone, right foot, subsequent encounter for fracture with delayed healing

== ENCOUNTER 2016-12-24 13:14 | Emergency (ER) | payer MEDICARE ==
[2016-12-24] MEDS ORDERED: ZOFRAN IM ONE (15:03)
--- NOTE | 2016-12-24 15:09 | Emergency Department Report ---
Chief Complaint: Nausea/Vomiting/Diarrhea Stated Complaint: GENERAL WEAKNESS/NAUSA Time Seen by Provider: 12/24/16 14:50 - HPI History of Present Illness: Patient is a 61-year-old male who presents complaining of nausea and vomiting since Saturday. Patient is here with his sister states he's been vomiting since Saturday. Patient states vomiting stopped after he was eating but as soon as he ate some pain in the vomiting started. Patient actively vomiting in triage. Patient states last episode of vomiting was this morning and now this episode started Y triage Patient denies fevers/chills/abdominal pain/chest pain/diarrhea or constipation/ shortness of breath. - ROS Review of Systems: As noted in HPI - Exam Vital Signs: Vital Signs 12/24/16 13:51 Temperature 97.9 F Pulse Rate 102 H Respiratory 20 Rate Blood Pressure 99/60 O2 Sat by Pulse 98 Oximetry Physical Exam: GENERAL: Alert and oriented x3, actively vomiting, atraumatic. NECK: Supple. Non edematous, No carotid bruits. No lymphadenopathy or thyromegaly. LUNGS: Symetrical with respiration, No wheezing, no rales or crackles, CTAB. HEART: S1, S2 present, regular rate and rhythm without murmur, no rubs, no gallops. ABDOMEN: No organomegaly was noted,Positive bowel sounds, soft, and non- distended. . Nontender to palpation on all Quadrants, NO CVA tenderness. MSE screening note: Focused history and physical exam performed. Due to findings the following was ordered: ED Medical Decision Making - Medical Decision Making Vital signs stable. Patient actively vomiting. 8 mg of Zofran IM administered. Blood glucose ordered. Patient was seen by the physician. ED Disposition for MSE Condition: Stable
[2016-12-24 16:02] LABS: Basophils % (Auto) 0.2 % (0.0-1.8); Eosinophils % (Auto) 0.5 % (0.0-4.3); Hematocrit 33.1 % (35.5-45.6); Hemoglobin 10.9 gm/dl (11.8-15.2); Mean Corpuscular HGB Conc 33 % (32-34); Mean Corpuscular Hemoglobin 31 pg (28-32); Mean Corpuscular Volume 93 fl (84-94); Platelet Count 179 K/mm3 (140-440); Red Blood Count 3.56 M/mm3 (3.65-5.03); Red Cell Distribution Width 13.6 % (13.2-15.2); White Blood Count 8.5 K/mm3 (4.5-11.0)
[2016-12-24 16:15] LABS: BUN/Creatinine Ratio 13.52; Calcium 9.1 mg/dL (8.4-10.2); Chloride 103.7 mmol/L (98-107); Potassium 3.6 mmol/L (3.6-5.0)
--- NOTE | 2016-12-24 21:44 | Emergency Department Report ---
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 Patient has been having these episodes for the last 2 days. No associated diarrhea or abdominal pain. Emesis usually occurs after eating. No fevers, chills, chest pain, palpitations. Patient was recently hospitalized 3 weeks ago with a stroke at which time he had similar symptoms with eating and was evaluated by upper endoscopy without any clear etiology. Symptoms improved when he went home but started again 2 days ago. ED Review of Systems ROS: Stated complaint: GENERAL WEAKNESS/NAUSA Other details as noted in HPI Comment: All other systems reviewed and negative Constitutional: denies: chills, fever Respiratory: denies: cough Cardiovascular: denies: chest pain Gastrointestinal: nausea, vomiting. denies: abdominal pain, diarrhea, constipation Neurological: denies: headache ED Past Medical Hx - Past Medical History Hx Hypertension: Yes Hx CVA: Yes Hx Heart Attack/AMI: No Hx Congestive Heart Failure: No Hx Diabetes: Yes Hx Deep Vein Thrombosis: No Hx Pulmonary Embolism: No Hx GERD: Yes Hx Liver Disease: Yes (HEP C) Hx Renal Disease: No Hx Sickle Cell Disease: No Hx Arthritis: No Hx Headaches / Migraines: Yes Hx Seizures: No Hx Kidney Stones: No Hx Asthma: No Hx COPD: No Hx Tuberculosis: No Hx Dementia: No Hx HIV: No Additional medical history: high cholesterol - Surgical History Hx Coronary Stent: No Hx Open Heart Surgery: No Hx Pacemaker: No Hx Internal Defibrillator: No Hx Cholecystectomy: Yes Hx Appendectomy: No Hx Breast Surgery: No Additional Surgical History: right foot surgery; toes amputated - Social History Smoking Status: Former Smoker Substance Use Type: Alcohol - Medications Home Medications: Home Medications Medication Instructions Recorded Confirmed Last Taken Type Ledipasvir/Sofosbuvir [Harvoni 1 each PO QDAY 04/10/16 11/22/16 11/15/16 History 90-400 mg Tablet] Latanoprost 0.005% [Xalatan 0.005%] 1 drop OU QPM 11/16/16 11/22/16 11/21/16 23: 00 History 1 drop Aspirin EC [Aspirin Enteric Coated 81 mg PO QDAY #30 tablet. 12/10/16 Unknown Rx TAB] Clopidogrel [Plavix] 75 mg PO DAILY #30 tablet 12/10/16 Unknown Rx Insulin Detemir [Levemir] 5 units SUB-Q QHS 30 Days 12/10/16 Unknown Rx Lisinopril [Zestril TAB] 10 mg PO QDAY #30 tablet 12/10/16 Unknown Rx Metoclopramide [Reglan TAB] 5 mg PO AC PRN #30 tablet 12/10/16 Unknown Rx Pantoprazole [Protonix TAB] 40 mg PO QDAY #30 tablet 12/10/16 Unknown Rx Simvastatin [Zocor TAB] 40 mg PO QHS #30 tablet 12/10/16 Unknown Rx Ondansetron [Zofran Odt] 4 mg PO Q8HR #8 tab.rapdis 12/24/16 Unknown Rx Vomiting Diarrhea Exam - Exam General: Vital signs noted. No distress. Alert and acting appropriately. HEENT: Yes Moist Mucous Membranes, No Pharyngeal Erythema, No Pharyngeal Exudates, No Conjuctival Injection Neck: No Adenopathy, No Rigidity Lungs: Yes Clear Lung Sounds, No Wheezes, No Cough Heart exam: Regular: Yes, Tachycardia: No Abdomen: Tenderness: No, Peritoneal Signs: No, Distention: No Skin exam: Rash: No Neurologic: Alert and oriented, no deficits. Musculoskeletal: Unremarkable. ED Course Vital Signs 12/24/16 13:51 Temperature 97.9 F Pulse Rate 102 H Respiratory 20 Rate Blood Pressure 99/60 O2 Sat by Pulse 98 Oximetry - Reevaluation(s) Reevaluation #1: 12/24/16 22:51 Patient tolerated by mouth fluids while. Heart rate at this time is 85, blood pressure has been around 110-120 systolic over 60-80 diastolic. I explained to the patient is may be all from gastroparesis versus gastritis. Leg also explained the necessity to the more frequent smaller meals. Patient endorses understanding. We'll discharge home with GI follow-up. ED Medical Decision Making - Lab Data Result diagrams: 12/24/16 15:44 12/24/16 15:44 - Medical Decision Making Patient has symptoms consistent with gastritis versus gastroparesis. We'll give Zofran and do a po challenge. EKG shows normal sinus rhythm without any ST changes, isolated T-wave inversions in noncontiguous leads, QTc normal Critical care attestation.: If time is entered above; I have spent that time in minutes in the direct care of this critically ill patient, excluding procedure time. ED Disposition Clinical Impression: Gastroparesis due to DM Gastritis Qualifiers: Gastritis type: unspecified gastritis Chronicity: unspecified Gastritis bleeding: without bleeding Qualified Code(s): K29.70 - Gastritis, unspecified, without bleeding Disposition: DISCHARGED TO HOME OR SELFCARE Is pt being admited?: No Does the pt Need Aspirin: No Condition: Stable Instructions: Acute Nausea and Vomiting (ED), Diabetes Mellitus Type 2 in Adults (ED) Additional Instructions: Please follow up with your primary care doctor in the next 3-5 days. 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 Return to the emergency room if you develop pain, are unable to keep fluids down, become dehydrated or develop any new symptoms. Prescriptions: Ondansetron [Zofran Odt] 4 mg PO Q8HR #8 tab.rapdis Referrals: PRIMARY CARE [Primary Care Provider] - 3-5 Days Time of Disposition: 23:13
[2016-12-24] MEDS ORDERED: ZOFRAN ODT PO ONE (21:51)
[2016-12-24 23:18] VITALS: BP 119/71
== END 2016-12-24 23:17 | disposition home or self-care (01) ==
LOC: ED 13:14
DX: E11.43 Type 2 diabetes mellitus with diabetic autonomic (poly)neuropathy (principal); K31.84 Gastroparesis; K29.70 Gastritis, unspecified, without bleeding; I10 Essential (primary) hypertension; I63.9 Cerebral infarction, unspecified; G43.909 Migraine, unspecified, not intractable, without status migrainosus; E78.00 Pure hypercholesterolemia, unspecified; Z90.49 Acquired absence of other specified parts of digestive tract; Z87.891 Personal history of nicotine dependence; Z79.82 Long term (current) use of aspirin; Z79.4 Long term (current) use of insulin
CPT/HCPCS: 36415; 80048; 82962; 85025; 93005; 93010; 96372; 99283; J2405; Q0162

== ENCOUNTER 2016-12-26 09:24 | Outpatient (CLI) | payer MEDICARE ==
[2016-12-26] MEDS ORDERED: XYLOCAINE TOPICAL 2% TP ONE ×2 (09:57→10:12)
== END 2016-12-26 09:25 | disposition home or self-care (01) ==
LOC: WOUND 09:24
PROVIDERS: ATTEND Orthopaedic Surgery
DX: E11.621 Type 2 diabetes mellitus with foot ulcer (principal); L97.511 Non-pressure chronic ulcer of other part of right foot limited to breakdown of skin; E11.610 Type 2 diabetes mellitus with diabetic neuropathic arthropathy; I10 Essential (primary) hypertension; Z86.73 Personal history of transient ischemic attack (TIA), and cerebral infarction without residual deficits; Z89.429 Acquired absence of other toe(s), unspecified side; Z87.891 Personal history of nicotine dependence

== ENCOUNTER 2017-01-02 13:24 | Outpatient (CLI) | payer MEDICARE ==
[~2017-01-02 13:24] MED LIST: XYLOCAINE TOPICAL 2% TP ONE
[2017-01-02] MEDS ORDERED: XYLOCAINE TOPICAL 2% TP ONE (15:06)
== END 2017-01-02 13:25 | disposition home or self-care (01) ==
LOC: WOUND 13:24
PROVIDERS: ATTEND Internal Medicine
DX: E11.621 Type 2 diabetes mellitus with foot ulcer (principal); L97.511 Non-pressure chronic ulcer of other part of right foot limited to breakdown of skin; K21.0 Gastro-esophageal reflux disease with esophagitis; E78.2 Mixed hyperlipidemia; I10 Essential (primary) hypertension; L84 Corns and callosities; G83.9 Paralytic syndrome, unspecified; Z86.73 Personal history of transient ischemic attack (TIA), and cerebral infarction without residual deficits; Z87.891 Personal history of nicotine dependence

== ENCOUNTER 2017-01-09 07:59 | Outpatient (CLI) | payer MEDICARE | END 2017-01-09 08:00 | disposition home or self-care (01) | LOC: WOUND 07:59 | PROVIDERS: ATTEND Internal Medicine | DX: E11.621 Type 2 diabetes mellitus with foot ulcer (principal); L97.511 Non-pressure chronic ulcer of other part of right foot limited to breakdown of skin; I10 Essential (primary) hypertension; E08.8 Diabetes mellitus due to underlying condition with unspecified complications; K21.0 Gastro-esophageal reflux disease with esophagitis; E78.2 Mixed hyperlipidemia; Z87.891 Personal history of nicotine dependence | CPT/HCPCS: 11719 ==

== ENCOUNTER 2017-01-14 08:49 | Outpatient (CLI) | payer MEDICARE ==
--- NOTE | 2017-01-14 11:26 | Fluoroscopy Report ---
Modified barium swallow History: Dysphagia. Findings: Anatomic obstruction noted to the flow of thin liquid, semisolid and solid food. No aspiration noted. Additional findings would be provided by speech therapist. Impression: Findings as detailed above.
== END 2017-01-14 08:50 | disposition home or self-care (01) ==
LOC: PT 08:49
PROVIDERS: ATTEND Internal Medicine Gastroenterology
DX: R13.10 Dysphagia, unspecified (principal)
CPT/HCPCS: 74230; 92611; G8996; G8997

== ENCOUNTER 2017-01-16 08:22 | Outpatient (CLI) | payer MEDICARE ==
[2017-01-17] MEDS ORDERED: XYLOCAINE TOPICAL 4% TP ONE (14:09)
== END 2017-01-16 08:23 | disposition home or self-care (01) ==
LOC: WOUND 08:22
PROVIDERS: ATTEND Internal Medicine
DX: E11.621 Type 2 diabetes mellitus with foot ulcer (principal); L97.511 Non-pressure chronic ulcer of other part of right foot limited to breakdown of skin; I10 Essential (primary) hypertension; K21.0 Gastro-esophageal reflux disease with esophagitis; E78.2 Mixed hyperlipidemia; Z86.73 Personal history of transient ischemic attack (TIA), and cerebral infarction without residual deficits; Z89.429 Acquired absence of other toe(s), unspecified side; Z87.891 Personal history of nicotine dependence

== ENCOUNTER 2017-01-30 08:16 | Outpatient (CLI) | payer MEDICARE ==
[2017-01-30] MEDS ORDERED: XYLOCAINE TOPICAL 4% TP ONE ×2 (08:19→08:43)
== END 2017-01-30 08:17 | disposition home or self-care (01) ==
LOC: WOUND 08:16
PROVIDERS: ATTEND Internal Medicine
DX: E11.621 Type 2 diabetes mellitus with foot ulcer (principal); L97.511 Non-pressure chronic ulcer of other part of right foot limited to breakdown of skin; K21.0 Gastro-esophageal reflux disease with esophagitis; E78.2 Mixed hyperlipidemia; I10 Essential (primary) hypertension; G83.9 Paralytic syndrome, unspecified; E78.5 Hyperlipidemia, unspecified; Z86.73 Personal history of transient ischemic attack (TIA), and cerebral infarction without residual deficits; Z89.429 Acquired absence of other toe(s), unspecified side; Z87.891 Personal history of nicotine dependence
CPT/HCPCS: 99213; G0463

== ENCOUNTER 2017-02-20 08:21 | Outpatient (CLI) | payer MEDICARE | END 2017-02-20 08:22 | disposition home or self-care (01) | LOC: WOUND 08:21 | PROVIDERS: ATTEND Internal Medicine | DX: E11.621 Type 2 diabetes mellitus with foot ulcer (principal); L97.511 Non-pressure chronic ulcer of other part of right foot limited to breakdown of skin; I10 Essential (primary) hypertension; K21.0 Gastro-esophageal reflux disease with esophagitis; E78.2 Mixed hyperlipidemia; Z87.891 Personal history of nicotine dependence; Z89.429 Acquired absence of other toe(s), unspecified side | CPT/HCPCS: 11055; 99212; G0463 ==

== ENCOUNTER 2017-04-03 08:39 | Outpatient (CLI) | payer MEDICARE | END 2017-04-03 08:40 | disposition home or self-care (01) | LOC: WOUND 08:39 | PROVIDERS: ATTEND Surgery | DX: E11.621 Type 2 diabetes mellitus with foot ulcer (principal); L97.511 Non-pressure chronic ulcer of other part of right foot limited to breakdown of skin; E11.610 Type 2 diabetes mellitus with diabetic neuropathic arthropathy; I10 Essential (primary) hypertension; K21.0 Gastro-esophageal reflux disease with esophagitis; E78.2 Mixed hyperlipidemia; Z86.73 Personal history of transient ischemic attack (TIA), and cerebral infarction without residual deficits; Z87.891 Personal history of nicotine dependence; Z72.89 Other problems related to lifestyle; Z89.429 Acquired absence of other toe(s), unspecified side | CPT/HCPCS: 99213; G0463 ==

== ENCOUNTER 2017-05-16 08:09 | Emergency (ER) | payer OTHER, MEDICARE ==
[2017-05-16 08:20] VITALS: BP 186/99
--- NOTE | 2017-05-16 08:56 | XRay Report ---
RIGHT FOREARM: History: Right arm pain and swelling. There is a linear density in the anterior soft tissues measuring approximately 1 cm. This has the appearance of a foreign body or possibly a retained needle fragment. Please correlate with the patient and images. There is mild diffuse soft tissue swelling. No soft tissue gas. The bony structures are intact. No fracture or periostitis. IMPRESSION: Soft tissue swelling. Questionable linear foreign body in the anterior soft tissues.
--- NOTE | 2017-05-16 08:57 | XRay Report ---
RIGHT HAND, 3 VIEWS History: Pain and swelling. Findings: There is moderate diffuse soft tissue swelling. The bony structures are intact. Mild osteoarthritic changes are noted throughout the fingers. No erosive joint pathology. Impression: Nonspecific soft tissue swelling. Mild degenerative changes.
[2017-05-16] MEDS ORDERED: LEVOPHED DRIP 4 MG/NS 250 ML 4 MG/250 ML BAG IV ONE (10:34)
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
== END 2017-05-16 13:49 | disposition home or self-care (01) ==
LOC: ED 08:09
DX: S63.8X1A Sprain of other part of right wrist and hand, initial encounter (principal); I10 Essential (primary) hypertension; E11.9 Type 2 diabetes mellitus without complications; K21.9 Gastro-esophageal reflux disease without esophagitis; G43.909 Migraine, unspecified, not intractable, without status migrainosus; E78.00 Pure hypercholesterolemia, unspecified; Z79.82 Long term (current) use of aspirin; Z79.4 Long term (current) use of insulin; Z79.02 Long term (current) use of antithrombotics/antiplatelets; Z90.49 Acquired absence of other specified parts of digestive tract; Z86.73 Personal history of transient ischemic attack (TIA), and cerebral infarction without residual deficits; V89.2XXA Person injured in unspecified motor-vehicle accident, traffic, initial encounter; Y93.89 Activity, other specified; Y92.89 Other specified places as the place of occurrence of the external cause; Y99.8 Other external cause status
CPT/HCPCS: 99283